=== PATIENT | male | born 1950 | race Native Hawaiian/Other Pacific Islander ===

== ENCOUNTER 2019-03-02 09:36 | Emergency (ER) | payer MEDICARE ==
[~2019-03-02] VITALS: Ht 167.6 cm; Wt 70.8 kg
--- NOTE | 2019-03-02 09:44 | NUR ---
MAURI IZAGUIRRE AT BEDSIDE FOR MSE.
[2019-03-02] MEDS ORDERED: ALBU18HF2 INH (09:58)
[2019-03-02] MEDS ORDERED: LURA40TA PO (09:58)
[2019-03-02] MEDS ORDERED: ATOR40TA PO (09:58)
[2019-03-02] MEDS ORDERED: DONE5TAB34 PO (09:58)
[2019-03-02] MEDS ORDERED: OMEP20CA11 PO (09:58)
[2019-03-02] MEDS ORDERED: MIRT7.5T10 PO (09:58)
[2019-03-02] MEDS ORDERED: OLAN15TA3 PO (09:58)
[2019-03-02] MEDS ORDERED: LIPA1CAP21 PO (09:58)
[2019-03-02] MEDS ORDERED: INSU100V28 SUBCUT ×2 (09:58)
[2019-03-02] MEDS ORDERED: DOCU-141 PO (09:58)
[2019-03-02] MEDS ORDERED: NIFE60TA69 PO (09:58)
[2019-03-02 09:59] LABS: *BILIRUBIN,URIN NEGATIVE (NEGATIVE); *BLOOD, URINE NEGATIVE (NEGATIVE); *CLARITY,URINE CLEAR (CLEAR); *COLOR,URINE YELLOW (YELLOW); *KETONES,URINE NEGATIVE (NEGATIVE); *UROBILINOGEN,URINE 0.2 E.U./dl (NORMAL); BASOPHILS # (AUTO) 0.1 K/uL (0.0-8.0); BASOPHILS % (AUTO) 0.6 % (0.0-2.0); EOSINOPHILS # (AUTO) 0.2 K/uL (0.0-0.7); EOSINOPHILS % (AUTO) 2.6 % (0.0-7.0); HEMATOCRIT 42.4 % (36.7-47.1); HEMOGLOBIN 14.2 g/dL (12.5-16.3); LEUKOCYTE ESTERASE ,URINE NEGATIVE (NEGATIVE); LYMPHOCYTES # (AUTO) 2.2 K/uL (20.0-40.0); LYMPHOCYTES % (AUTO) 25.3 % (20.5-51.5); MEAN CORPUSCULAR HGB CONC 34 g/dL (32.5-36.3); MEAN CORPUSCULAR VOLUME 83.5 fL (73.0-96.2); MONOCYTES # (AUTO) 0.5 K/uL (2.0-10.0); MONOCYTES % (AUTO) 6.2 % (0.0-11.0); NEUTROPHILS # (AUTO) 5.6 K/uL (1.8-8.9); NEUTROPHILS % (AUTO) 65.3 % (38.5-71.5); NITRITE, URINE NEGATIVE (NEGATIVE); PH,URINE 5.5 (5.0-8.0); PLATELET COUNT (AUTO) 163 K/uL (152-348); RED BLOOD CELL COUNT(AUTO) 5.08 MIL/uL (4.06-5.63); UGLUCOSE TRACE (NEGATIVE); WHITE BLOOD COUNT (AUTO) 8.6 K/uL (3.6-10.2)
[2019-03-02 10:04] LABS: CREATININE 1.7 mg/dL (0.6-1.3); POTASSIUM 4.1 mmol/L (3.5-5.1)
[2019-03-02 10:07] LABS: RBC,URINE NONE SEEN /HPF (0-3); WBC,URINE 0-3 /HPF (0-3)
[2019-03-02 10:08] LABS: BACTERIA,URINE NONE SEEN /HPF (NONE SEEN); SQUAMOUS EPITHELIAL CELL,UR FEW /HPF (NONE SEEN)
[2019-03-02 10:15] LABS: BILIRUBIN,DIRECT 0.1 mg/dL (0.0-0.2); BILIRUBIN,TOTAL 0.5 mg/dL (0.2-1.0); TOTAL PROTEIN, SERUM 7.8 g/dL (6.4-8.2)
--- NOTE | 2019-03-02 10:19 | NUR ---
SPOKE W/ RAS FROM [facility]. TRIP #[id number] ETA 1200.
--- NOTE | 2019-03-02 11:42 | NUR ---
Patient discharged to home in stable conditon. Written and verbal after care instructions given. Patient verbalizes understanding of instructions. ALL BELONGINGS W/ PT. PT WILL BE D/C UNDER CARE OF [facility] UN[facility], PRIVATE AMBULANCE.
[2019-03-02 11:44] VITALS: BP 144/77
== END 2019-03-02 11:44 | disposition home or self-care (01) ==
LOC: ER 09:36
DX: N43.3 Hydrocele, unspecified (principal); N28.9 Disorder of kidney and ureter, unspecified; R73.9 Hyperglycemia, unspecified; Z88.8 Allergy status to other drugs, medicaments and biological substances; Z79.4 Long term (current) use of insulin; Z79.899 Other long term (current) drug therapy
CPT/HCPCS: 36415; 76870; 85025; 87086; A4663

== ENCOUNTER 2019-12-19 15:00 | Inpatient (IN) | payer MEDICARE, OTHER ==
[~2019-12-19] VITALS: Ht 170.2 cm; Wt 62.6 kg
[~2019-12-19 15:00] MED LIST: ALBU18HF2 INH; ATOR40TA PO; DOCU-141 PO; DONE5TAB34 PO; INSU100V28 SUBCUT; LIPA1CAP21 PO; LURA40TA PO; MIRT7.5T10 PO; NIFE-34 PO; OLAN15TA3 PO; OMEP20CA15 PO
--- NOTE | 2019-12-19 15:06 | NUR ---
PATIENT WAS MSE BY DR SQUIRES IN ROOM 03A.
[2019-12-19] MEDS ORDERED: OMEP20TA5 PO (16:25)
[2019-12-19] MEDS ORDERED: INSU100I26 SQ (16:25)
[2019-12-19] MEDS ORDERED: INSU100V28 SQ (16:25)
[2019-12-19] MEDS ORDERED: LISI10TA5 PO (16:25)
[2019-12-19] MEDS ORDERED: NPH,100V2 SQ ×2 (16:25)
[2019-12-19 17:11] LABS: BASOPHILS % (AUTO) 0.4 % (0.0-2.0); HEMATOCRIT 44.6 % (36.7-47.1); HEMOGLOBIN 14.9 g/dL (12.5-16.3); LYMPHOCYTES # (AUTO) 1.8 K/uL (20.0-40.0); LYMPHOCYTES % (AUTO) 17.5 % (20.5-51.5); MEAN CORPUSCULAR HEMOGLOBIN 27.5 uug (23.8-33.4); MEAN CORPUSCULAR HGB CONC 33 g/dL (32.5-36.3); MEAN CORPUSCULAR VOLUME 82.4 fL (73.0-96.2); MONOCYTES # (AUTO) 0.8 K/uL (2.0-10.0); MONOCYTES % (AUTO) 7.5 % (0.0-11.0); NEUTROPHILS # (AUTO) 7.8 K/uL (1.8-8.9); NEUTROPHILS % (AUTO) 74.6 % (38.5-71.5); PLATELET COUNT (AUTO) 160 K/uL (152-348); RED BLOOD CELL COUNT(AUTO) 5.42 MIL/uL (4.06-5.63); WHITE BLOOD COUNT (AUTO) 10.4 K/uL (3.6-10.2)
[2019-12-19 17:14] LABS: *BILIRUBIN,URIN NEGATIVE (NEGATIVE); *BLOOD, URINE NEGATIVE (NEGATIVE); *CLARITY,URINE SLIGHTLY CLOUDY (CLEAR); *COLOR,URINE YELLOW (YELLOW); *KETONES,URINE NEGATIVE (NEGATIVE); *UROBILINOGEN,URINE 0.2 E.U./dl (NORMAL); LEUKOCYTE ESTERASE ,URINE NEGATIVE (NEGATIVE); NITRITE, URINE NEGATIVE (NEGATIVE); UGLUCOSE NEGATIVE (NEGATIVE)
[2019-12-19 17:20] LABS: CARBON DIOXIDE 23 mmol/L (21-32); CHLORIDE 102 mmol/L (98-107); CREATININE 2.7 mg/dL (0.6-1.3); GLUCOSE 223 mg/dL (74-106); POTASSIUM 4.6 mmol/L (3.5-5.1); UREA NITROGEN, BLOOD 68 mg/dL (7-18)
[2019-12-19 17:28] LABS: BACTERIA,URINE FEW /HPF (NONE SEEN); RBC,URINE 0-3 /HPF (0-3); SQUAMOUS EPITHELIAL CELL,UR FEW /HPF (NONE SEEN); WBC,URINE 0-3 /HPF (0-3)
[2019-12-19 17:29] LABS: COARSE GRANULAR CASTS,URINE FEW /LPF
[2019-12-19 17:32] LABS: ALANINE AMINOTRANSFERASE 52 U/L (16-63); ALKALINE PHOSPHATASE 53 U/L (50-136); ASPARTATE AMINOTRANSFERASE 77 U/L (15-37); BILIRUBIN,TOTAL 0.5 mg/dL (0.2-1.0); TOTAL PROTEIN, SERUM 8.3 g/dL (6.4-8.2)
[2019-12-19] MEDS ORDERED: CEFTRIAXONE /D5W 50ML IVPB **ER PYXIS IV ONE (17:43)
[2019-12-19] MEDS ORDERED: ACETAMINOPHEN ES 500 MG TABLET PO ONE (17:45)
[2019-12-19] MEDS ORDERED: AZITHROMYCIN IV 500 MG in IV DEXTROSE 5% 250 ML IV ONE (17:45)
[2019-12-19] MEDS ORDERED: CEFTRIAXONE 1 G in IV DEXTROSE 5% 50 ML IV ONE (17:45)
[2019-12-19] MEDS ORDERED: IV NS 1000 ML 1,000 ML IV ONE (17:45)
[2019-12-19] MEDS ORDERED: ACETAMINOPHEN ES 500 MG TABLET ONE (17:46)
--- NOTE | 2019-12-19 18:15 | NUR ---
DR RUELAS CALLED BACK SPOKE WITH DR TAVIA WILSON TO ADMIT PATIENT.
[2019-12-19] MEDS ORDERED: AZITHROMYCIN 500MG/ D5W 250ML IVPB **ER PYXIS ONLY IV ONE (18:33)
--- NOTE | 2019-12-19 20:00 | NUR ---
Pt. admitted to Tele , under care of Dr. Navarro Belongs List completed
--- NOTE | 2019-12-19 20:00 | NUR ---
Admitted 69y/o Male under the care of Dr. Navarro. Dx: PNA/r/o Covid. Patient is A&O1, noted confused. On nonrebreather mask at 15L/min saturating at 96%. Patient placed on droplet/contact isolation. On tele monitor. IV on RAC 20g intact and patent w/ IVF infusing. Admission protocol initiated. Body assessment done. Safety measures implemented. Call light in reach
[2019-12-19 20:15] VITALS: BP 101/50
[2019-12-19] MEDS ORDERED: ALBUTEROL SULFATE 8 GM HFA.AER.AD INH PRN (20:45)
[2019-12-19] MEDS ORDERED: INSULIN GLARGINE,HUM 300 UNITS/3 ML CARTRIDGE SQ SCH (21:00)
[2019-12-19] MEDS ORDERED: BLOOD SUGAR DIAGNOSTIC 1 EACH STRIP VI SCH (21:00)
[2019-12-19] MEDS ORDERED: DEXTROSE 50% 50 ML DISP.SYRIN IV PRN (21:15)
[2019-12-19] MEDS: MIRTAZAPINE 15 MG TABLET PO SCH (21:35)
[2019-12-19] MEDS: ATORVASTATIN 40 MG TABLET PO SCH (21:35)
[2019-12-19] MEDS: INSULIN REGULAR, HUMAN 300 UNITS/3 ML VIAL SQ PRN (21:55)
[2019-12-19] MEDS: INSULIN REGULAR, HUMAN 300 UNIT/3 ML VIAL SQ PRN (21:55)
[2019-12-19 22:28] VITALS: BP 101/50
[2019-12-20] VITALS: BP 122/55
[2019-12-20 04:00] VITALS: BP 130/57
[2019-12-20] MEDS: ACETAMINOPHEN 325 MG TABLET PO PRN ×2 (06:01→15:48)
[2019-12-20 06:32] LABS: BASOPHILS % (AUTO) 0.3 % (0.0-2.0); HEMOGLOBIN 13.6 g/dL (12.5-16.3); LYMPHOCYTES # (AUTO) 1.7 K/uL (20.0-40.0); LYMPHOCYTES % (AUTO) 14.9 % (20.5-51.5); MEAN CORPUSCULAR HEMOGLOBIN 27.3 uug (23.8-33.4); MEAN CORPUSCULAR HGB CONC 33 g/dL (32.5-36.3); MEAN CORPUSCULAR VOLUME 82.6 fL (73.0-96.2); MONOCYTES # (AUTO) 0.7 K/uL (2.0-10.0); MONOCYTES % (AUTO) 6.2 % (0.0-11.0); NEUTROPHILS # (AUTO) 9.1 K/uL (1.8-8.9); NEUTROPHILS % (AUTO) 78.6 % (38.5-71.5); PLATELET COUNT (AUTO) 153 K/uL (152-348); RED BLOOD CELL COUNT(AUTO) 4.97 MIL/uL (4.06-5.63); WHITE BLOOD COUNT (AUTO) 11.5 K/uL (3.6-10.2)
[2019-12-20 06:34] LABS: CARBON DIOXIDE 23 mmol/L (21-32); CHLORIDE 104 mmol/L (98-107); CREATININE 2.5 mg/dL (0.6-1.3); GLUCOSE 67 mg/dL (74-106); LACTATE DEHYDROGENASE 406 U/L (85-227); POTASSIUM 3.9 mmol/L (3.5-5.1); UREA NITROGEN, BLOOD 64 mg/dL (7-18)
[2019-12-20] MEDS: BLOOD SUGAR DIAGNOSTIC 1 EACH STRIP VI SCH ×4 (06:37→20:41)
--- NOTE | 2019-12-20 06:59 | NUR ---
Patient slept intermittently. On O2 at 8L/min via mask, saturating at 92-93%. SR on Tele monitor. BS this AM=57, patient alert, OJ and snacks given, BS rechecked went up to 99. Heplock on RAC intact and patent. All needs attended. Will endorse accordingly
[2019-12-20] MEDS ORDERED: PANTOPRAZOLE SODIUM 40 MG TABLET.DR PO SCH (07:00)
--- NOTE | 2019-12-20 07:58 | NUR ---
RECEIVED PATIENT IN BED AWAKE ALERT TO SELF NON VERBAL REMAINS ON O2 BY MASK AT 8L/M WITH NO SOB SATS ARE ADEQUATE NO S/S OF HYPOGLYCEMIC REACTIONS AT THIS TIME ALL NEEDS ANTICIPATED AND SATISFIED MADE COMFORTABLE WILL CONTINUE TO OBSERVE.
[2019-12-20 08:19] VITALS: BP 116/52
[2019-12-20] MEDS: DOCUSATE SODIUM 100 MG CAPSULE PO SCH ×2 (08:30→20:27)
[2019-12-20] MEDS: PANTOPRAZOLE SODIUM 40 MG TABLET.DR PO SCH (08:30)
[2019-12-20] MEDS: NIFEdipine XL 60 MG TABSR PO SCH (08:31)
[2019-12-20] MEDS ORDERED: LISINOPRIL 10 MG TABLET PO SCH (09:00)
[2019-12-20] MEDS ORDERED: DOCUSATE SODIUM 100 MG CAPSULE PO SCH (09:00)
[2019-12-20] MEDS ORDERED: INSULIN NPH 1,000 UNITS/10 ML VIAL SQ SCH ×2 (09:00→18:00)
--- NOTE | 2019-12-20 11:40 | NUR ---
O2 SAT IS 88 PERCENT WITH SIMPLE MASK CHANGED TO NRM AT 15 LITERS SATS STILL LOW AT [address] BELLO IS HERE AND AWARE WITH ORDERS.
[2019-12-20] MEDS: INSULIN REGULAR, HUMAN 300 UNIT/3 ML VIAL SQ PRN ×2 (12:24→16:24)
--- NOTE | 2019-12-20 12:40 | NUR ---
DR RUELAS HERE AND SEEN PATIENT INFORMED HIM THAT PATIENT IS ON LANTUS AND HAD AN EPISODE OF HYPOGLYCEMIA THIS AM AND HE STATED TO DISCONTINUE THE LANTUS FOR NOW AND JUST DO THE SLIDING SCALE AND NOTED.
--- NOTE | 2019-12-20 15:40 | NUR ---
TEMP AT THIS TIME IS 101.9 TYLENOL GIVEN ORDERED STARTED COOLING MEASURES FLUIDS ENCOURAGED PATIENT HAD BLOOD CULTURES DONE LAST EVENING HE IS IN IV ANTIBIOTICS PATIENT MADE COMFORTABLE AND WILL CONTINUE TO OBSERVE.
[2019-12-20] MEDS: DONEPEZIL 5 MG TABLET PO SCH (15:48)
[2019-12-20 15:56] VITALS: BP 132/70
--- NOTE | 2019-12-20 16:30 | NUR ---
SEEN ATTEMPTING TO GET OUT OF THE BED HAD HIS LEGS OVER THE SIDE RAILS UNABLE TO STATE WHERE HE WAS GOING ASSISTED BACK INTO THE BED MADE COMFORTABLE REMAIN ON NR MASK AT 15 L/M SEEN MANY TIMES REMOVING THE MASK REAPPLIED MADE COMFORTABLE.
[2019-12-20] MEDS: CEFTRIAXONE 1 G in IV DEXTROSE 5% 50 ML IV SCH (17:00)
[2019-12-20] MEDS: AZITHROMYCIN IV 250 MG in IV DEXTROSE 5% 250 ML IV SCH (17:52)
[2019-12-20] MEDS ORDERED: INSULIN REGULAR, HUMAN 300 UNIT/3 ML VIAL SQ SCH (18:00)
--- NOTE | 2019-12-20 18:00 | NUR ---
RESTING MORE CALMER AND QUITE AT THIS TIME AFEBRILE AT 98.6
--- NOTE | 2019-12-20 19:30 | NUR ---
RECEIVED PT AWAKE, ALERT AND ORIENTEDX2. PT IN NO ACUTE DISTRESS. IV INTACT. PT ON NONREBREATHER MASK. SAFETY AND COMFORT PROVIDED. WILL CONTINUE TO MONITOR.
[2019-12-20 20:00] VITALS: BP 142/64
[2019-12-20] MEDS: ATORVASTATIN 40 MG TABLET PO SCH (20:27)
[2019-12-20] MEDS: MIRTAZAPINE 15 MG TABLET PO SCH (20:27)
[2019-12-20] MEDS: ENOXAPARIN SODIUM 30 MG/0.3 ML DISP.SYRIN SUBCUT SCH (20:37)
[2019-12-20] MEDS: INSULIN REGULAR, HUMAN 300 UNITS/3 ML VIAL SQ PRN (20:43)
[2019-12-20] MEDS ORDERED: BLOOD SUGAR DIAGNOSTIC 1 EACH STRIP VI SCH (21:00)
[2019-12-21] VITALS: BP 136/63
[2019-12-21] MEDS: ACETAMINOPHEN 325 MG TABLET PO PRN (01:30)
[2019-12-21 04:00] VITALS: BP 139/66
--- NOTE | 2019-12-21 04:12 | NUR ---
PT OBSERVED MOANING AND RESTLESS. GIVEN 013OH TYLENOL. PT CALM AND SLEPT AGAIN AFTER AN HOUR. SAFETY AND COMFORT PROVIDED. WILL CONTINUE TO MONITOR.
[2019-12-21 06:17] LABS: BASOPHILS % (AUTO) 0.2 % (0.0-2.0); HEMATOCRIT 41.7 % (36.7-47.1); HEMOGLOBIN 14.1 g/dL (12.5-16.3); LYMPHOCYTES # (AUTO) 1.3 K/uL (20.0-40.0); LYMPHOCYTES % (AUTO) 9.9 % (20.5-51.5); MEAN CORPUSCULAR HEMOGLOBIN 27.9 uug (23.8-33.4); MEAN CORPUSCULAR HGB CONC 34 g/dL (32.5-36.3); MEAN CORPUSCULAR VOLUME 82.6 fL (73.0-96.2); MONOCYTES # (AUTO) 0.8 K/uL (2.0-10.0); MONOCYTES % (AUTO) 5.9 % (0.0-11.0); NEUTROPHILS # (AUTO) 10.9 K/uL (1.8-8.9); PLATELET COUNT (AUTO) 199 K/uL (152-348); RED BLOOD CELL COUNT(AUTO) 5.05 MIL/uL (4.06-5.63)
[2019-12-21] MEDS: BLOOD SUGAR DIAGNOSTIC 1 EACH STRIP VI SCH ×4 (06:41→21:23)
--- NOTE | 2019-12-21 06:56 | NUR ---
PT SLEPT INTERMITTENTLY. PT IN NO ACUTE DISTRESS. PT AFEBRILE. HAD EPISODES OF COUGH.PRESCRIBED MEDICATION GIVEN AND PT TOLERATED IT WELL. SAFETY AND COMFORT PROVIDED.PT TURNED AND REPOSITIONED. PT WILL SOMETIMES TAKES OFF HER OXYGEN. ALL NEEDS ARE MET.PRESCRIBEDMEDICATION GIVEN AND PT TOLERATED IT WELL. WILL ENDORSE TO INCOMING NURSE FOR CONTINUITY OF CARE.
[2019-12-21 07:05] LABS: CARBON DIOXIDE 20 mmol/L (21-32); CHLORIDE 104 mmol/L (98-107); CREATININE 2.6 mg/dL (0.6-1.3); FERRITIN 2622 ng/mL (26-388); GLUCOSE 147 mg/dL (74-106); LACTATE DEHYDROGENASE 608 U/L (85-227); MAGNESIUM 2.6 mg/dL (1.8-2.4); PHOSPHOROUS 4.3 mg/dL (2.5-4.9); POTASSIUM 3.7 mmol/L (3.5-5.1); UREA NITROGEN, BLOOD 69 mg/dL (7-18)
[2019-12-21 08:47] LABS: ABG BASE EXCESS -5.1 mmol/L; ABG HCO3 18.5 mmol/L; ABG PCO2 31.2 mmHg (35.0-45.0); ABG PH 7.392 (7.350-7.450); ABG PO2 48.1 mmHg (75.0-100.0); ABG SITE RIGHT RADIAL; ABG TOTAL HEMOGLOBIN 14.9 G/dL (13.5-18.0); COHb 1.1 % (0.5-1.5); MetHb 0.3 % (0.0-1.5); O2Hb 80.7 % (94.0-97.0)
[2019-12-21] MEDS: DONEPEZIL 5 MG TABLET PO SCH (09:24)
[2019-12-21] MEDS: PANTOPRAZOLE SODIUM 40 MG TABLET.DR PO SCH (09:25)
[2019-12-21] MEDS: NIFEdipine XL 60 MG TABSR PO SCH (09:25)
[2019-12-21] MEDS: DOCUSATE SODIUM 100 MG CAPSULE PO SCH ×2 (09:25→21:24)
[2019-12-21 10:41] VITALS: BP 139/66
[2019-12-21 13:00] VITALS: BP 124/62
[2019-12-21] MEDS ORDERED: ACETAMINOPHEN 325 MG TABLET PO ONE (14:30)
[2019-12-21] MEDS ORDERED: methylPREDNISolone SOD SUCC 40 MG/ML VIAL IV ONE (14:30)
[2019-12-21] MEDS ORDERED: diphenhydrAMINE 50 MG/1 ML VIAL IV ONE (14:30)
[2019-12-21] MEDS ORDERED: TOCILIZUMAB 400 MG in IV NORMAL SALINE 80 ML IV ONE (15:00)
--- NOTE | 2019-12-21 15:01 | NUR ---
BRYANNA UP DOSE OF BENADRYL FOR ADMINISTRATION. THREW IT IN SHARPS CONTAINER BY ACCIDENT NEW VIAL BROUGHT BY PHARMACY
[2019-12-21 16:00] VITALS: BP 111/56
[2019-12-21] MEDS: CEFTRIAXONE 1 G in IV DEXTROSE 5% 50 ML IV SCH (17:36)
[2019-12-21] MEDS: AZITHROMYCIN IV 250 MG in IV DEXTROSE 5% 250 ML IV SCH ×2 (17:36→18:00)
[2019-12-21] MEDS: MIRTAZAPINE 15 MG TABLET PO SCH (21:23)
[2019-12-21] MEDS: ATORVASTATIN 40 MG TABLET PO SCH (21:24)
[2019-12-21] MEDS: ENOXAPARIN SODIUM 30 MG/0.3 ML DISP.SYRIN SUBCUT SCH (21:25)
[2019-12-21] MEDS: INSULIN REGULAR, HUMAN 300 UNITS/3 ML VIAL SQ PRN (21:27)
[2019-12-21] MEDS: methylPREDNISolone SOD SUCC 125 MG/2 ML VIAL IV SCH (22:31)
[2019-12-21 23:45] VITALS: BP 129/71
--- NOTE | 2019-12-21 23:45 | NUR ---
Called Rapid Response team d/t patient's persistent tachycardia and low oxygen saturation. Patient is transferred to CCU.
--- NOTE | 2019-12-21 23:45 | NUR ---
Patient transferred to ICU / poor SaO2 70's.
--- NOTE | 2019-12-21 23:57 | NUR ---
gave the report to FELIX Moctezuma.
[2019-12-22] VITALS (24 sets, daily range): BP systolic 86–139; BP diastolic 44–73
[2019-12-22 00:11] LABS: ABG BASE EXCESS -6.6 mmol/L; ABG HCO3 16.7 mmol/L; ABG PCO2 28.3 mmHg (35.0-45.0); ABG PH 7.389 (7.350-7.450); ABG PO2 35.5 mmHg (75.0-100.0); ABG SITE RIGHT RADIAL; ABG TOTAL HEMOGLOBIN 15.9 G/dL (13.5-18.0); COHb 1.1 % (0.5-1.5); MetHb 0.3 % (0.0-1.5); O2Hb 66.8 % (94.0-97.0)
--- NOTE | 2019-12-22 01:04 | NUR ---
Per MD orders pt placed on BIPAP at this time. Settings are IPAP 15, EPAP 5, set resp. rate 12 and FIO2-100%. No resp. distress noted. Pt to be monitored throughout the duration of the shift. V60 alarm parameters have been checked and remain audible.
--- NOTE | 2019-12-22 01:45 | NUR ---
18 ga right upper arm midline IV access placed by EVELYN Hurd.
[2019-12-22 05:01] LABS: BASOPHILS # (AUTO) 0.1 K/uL (0.0-8.0); BASOPHILS % (AUTO) 0.8 % (0.0-2.0); HEMATOCRIT 41.7 % (36.7-47.1); HEMOGLOBIN 13.8 g/dL (12.5-16.3); LYMPHOCYTES # (AUTO) 0.8 K/uL (20.0-40.0); LYMPHOCYTES % (AUTO) 4.1 % (20.5-51.5); MEAN CORPUSCULAR HEMOGLOBIN 27.3 uug (23.8-33.4); MEAN CORPUSCULAR HGB CONC 33 g/dL (32.5-36.3); MEAN CORPUSCULAR VOLUME 82.4 fL (73.0-96.2); MONOCYTES # (AUTO) 0.9 K/uL (2.0-10.0); MONOCYTES % (AUTO) 4.8 % (0.0-11.0); NEUTROPHILS # (AUTO) 17.4 K/uL (1.8-8.9); NEUTROPHILS % (AUTO) 90.3 % (38.5-71.5); PLATELET COUNT (AUTO) 282 K/uL (152-348); RED BLOOD CELL COUNT(AUTO) 5.06 MIL/uL (4.06-5.63); WHITE BLOOD COUNT (AUTO) 19.2 K/uL (3.6-10.2)
[2019-12-22 05:17] LABS: ALANINE AMINOTRANSFERASE 159 U/L (16-63); ALKALINE PHOSPHATASE 81 U/L (50-136); ASPARTATE AMINOTRANSFERASE 172 U/L (15-37); BILIRUBIN,DIRECT 0.1 mg/dL (0.0-0.2); BILIRUBIN,TOTAL 0.5 mg/dL (0.2-1.0); CARBON DIOXIDE 21 mmol/L (21-32); CHLORIDE 106 mmol/L (98-107); CREATININE 2.8 mg/dL (0.6-1.3); LACTATE DEHYDROGENASE 633 U/L (85-227); MAGNESIUM 2.9 mg/dL (1.8-2.4); PHOSPHOROUS 3.9 mg/dL (2.5-4.9); POTASSIUM 4.4 mmol/L (3.5-5.1); TOTAL PROTEIN, SERUM 7.9 g/dL (6.4-8.2); UREA NITROGEN, BLOOD 77 mg/dL (7-18)
[2019-12-22] MEDS: methylPREDNISolone SOD SUCC 125 MG/2 ML VIAL IV SCH ×2 (05:21→20:53)
[2019-12-22 05:25] LABS: GLUCOSE 312 mg/dL (74-106)
[2019-12-22] MEDS: BLOOD SUGAR DIAGNOSTIC 1 EACH STRIP VI SCH ×4 (07:30→21:27)
[2019-12-22 08:23] LABS: ABG BASE EXCESS -5.7 mmol/L; ABG HCO3 18.6 mmol/L; ABG PCO2 33.3 mmHg (35.0-45.0); ABG PH 7.366 (7.350-7.450); ABG PO2 73.4 mmHg (75.0-100.0); ABG SITE LEFT RADIAL; ABG TOTAL HEMOGLOBIN 14.9 G/dL (13.5-18.0); MetHb 0.3 % (0.0-1.5); VENT MODE BIPAP
--- NOTE | 2019-12-22 08:40 | NUR ---
PAGED DR BELLO IN REGARDING ABG RESULTS. NEW TRANSFER OF PATIENT AND PATIENT ON BIPAP.
[2019-12-22] MEDS: NIFEdipine XL 60 MG TABSR PO SCH (09:00)
[2019-12-22] MEDS: DONEPEZIL 5 MG TABLET PO SCH (09:12)
[2019-12-22] MEDS: DOCUSATE SODIUM 100 MG CAPSULE PO SCH (09:12)
[2019-12-22] MEDS: PANTOPRAZOLE SODIUM 40 MG TABLET.DR PO SCH (09:12)
[2019-12-22] MEDS: INSULIN REGULAR, HUMAN 300 UNIT/3 ML VIAL SQ PRN ×4 (09:16→21:35)
--- NOTE | 2019-12-22 09:30 | NUR ---
DOCTOR BELLO IN THE UNIT TO SEE PATIENT WILL PLAN TO INTUBATE PATIENT TODAY BY ANESTHESIOLOGIST THAT IS PSYCHIATRIC TECH OR ER DOCTOR.
--- NOTE | 2019-12-22 09:45 | NUR ---
DOCTOR EMERITA IN THE UNIT TO SEE PATIENT. INFORMED BLOOD PRESSURE MEDICATION PROCARDIA HELD THIS AM FOR POSSIBLE INTUBATION TODAY. WILL DISCONTINUE FOR NOW.
[2019-12-22] MEDS ORDERED: KETAMINE HCL 500 MG/10 ML INJ IV ONE (13:00)
--- NOTE | 2019-12-22 13:07 | NUR ---
ANESTHESIOLOGIST IN THE UNIT TO INTUBATE PATIENT. PATIENT INTUBATED WITH 7.5 AND 25CM AT THE LIP. PATIENT WAS ALSO GIVEN SUCCINYLCHOLINE AND KETAMINE FOR INTUBATION PER ANESTHESIOLOGIST.
[2019-12-22] MEDS: PROPOFOL 100 ML IV PRN ×3 (13:32→20:11)
[2019-12-22 14:45] LABS: ABG BASE EXCESS -6.8 mmol/L; ABG HCO3 20.8 mmol/L; ABG PCO2 49.4 mmHg (35.0-45.0); ABG PH 7.242 (7.350-7.450); ABG PO2 175.1 mmHg (75.0-100.0); ABG SITE LEFT RADIAL; ABG TOTAL HEMOGLOBIN 14.7 G/dL (13.5-18.0); COHb 0.7 % (0.5-1.5); MetHb 0.3 % (0.0-1.5); O2Hb 98.2 % (94.0-97.0); VENT MODE VENT - A/C; VT, ABG 450 mL
--- NOTE | 2019-12-22 15:00 | NUR ---
REPORTED ABG TO ELIZABET BELLO 1 HOUR POST INTUBATION.
[2019-12-22] MEDS: CEFTRIAXONE 1 G in IV DEXTROSE 5% 50 ML IV SCH (17:51)
[2019-12-22 17:58] LABS: ABG BASE EXCESS -6.4 mmol/L; ABG HCO3 20.1 mmol/L; ABG PCO2 43.6 mmHg (35.0-45.0); ABG PH 7.282 (7.350-7.450); ABG PO2 72.5 mmHg (75.0-100.0); ABG SITE RIGHT RADIAL; ABG TOTAL HEMOGLOBIN 14.1 G/dL (13.5-18.0); MetHb 0.3 % (0.0-1.5); O2Hb 91.2 % (94.0-97.0); VENT MODE VENT - A/C; VT, ABG 450 mL
[2019-12-22] MEDS: AZITHROMYCIN IV 250 MG in IV DEXTROSE 5% 250 ML IV SCH (18:35)
[2019-12-22] MEDS: IV NORMAL SALINE 250 ML IV PRN (19:00)
[2019-12-22] MEDS ORDERED: CEFEPIME HCL 1 G in IV DEXTROSE 5% 50 ML IV SCH (20:30)
[2019-12-22] MEDS: ENOXAPARIN SODIUM 30 MG/0.3 ML DISP.SYRIN SUBCUT SCH (20:54)
[2019-12-22] MEDS: MIRTAZAPINE 15 MG TABLET NG SCH (20:54)
[2019-12-22] MEDS: DOCUSATE SODIUM 100 MG/10 ML LIQUID UDC NG SCH (20:55)
[2019-12-22] MEDS: CEFEPIME HCL 1 G in IV DEXTROSE 5% 50 ML IV SCH (21:27)
[2019-12-23] VITALS (28 sets, daily range): BP systolic 83–138; BP diastolic 37–80
[2019-12-23] MEDS ORDERED: IV NORMAL SALINE 250 ML IV PRN (00:01)
[2019-12-23] MEDS: PROPOFOL 100 ML IV PRN ×4 (02:10→21:18)
[2019-12-23] MEDS: IV NORMAL SALINE 250 ML IV PRN ×2 (04:18→04:38)
--- NOTE | 2019-12-23 04:30 | NUR ---
Sx ETT & sent to lab: respiratory pathogen profile - originally ordered by Dr Carter in ER.
[2019-12-23 04:52] LABS: BASOPHILS % (AUTO) 0.2 % (0.0-2.0); HEMATOCRIT 40.5 % (36.7-47.1); HEMOGLOBIN 13.3 g/dL (12.5-16.3); LYMPHOCYTES % (AUTO) 4.9 % (20.5-51.5); MEAN CORPUSCULAR HEMOGLOBIN 27.3 uug (23.8-33.4); MEAN CORPUSCULAR HGB CONC 33 g/dL (32.5-36.3); MEAN CORPUSCULAR VOLUME 83.2 fL (73.0-96.2); MONOCYTES # (AUTO) 0.8 K/uL (2.0-10.0); MONOCYTES % (AUTO) 4.2 % (0.0-11.0); NEUTROPHILS # (AUTO) 17.6 K/uL (1.8-8.9); NEUTROPHILS % (AUTO) 90.7 % (38.5-71.5); PLATELET COUNT (AUTO) 319 K/uL (152-348); RED BLOOD CELL COUNT(AUTO) 4.87 MIL/uL (4.06-5.63); WHITE BLOOD COUNT (AUTO) 19.4 K/uL (3.6-10.2)
[2019-12-23 05:02] LABS: CARBON DIOXIDE 23 mmol/L (21-32); CHLORIDE 109 mmol/L (98-107); CREATININE 3.6 mg/dL (0.6-1.3); MAGNESIUM 3.6 mg/dL (1.8-2.4); PHOSPHOROUS 5.9 mg/dL (2.5-4.9); POTASSIUM 4.6 mmol/L (3.5-5.1)
[2019-12-23 05:20] LABS: GLUCOSE 341 mg/dL (74-106); UREA NITROGEN, BLOOD 103 mg/dL (7-18)
[2019-12-23] MEDS: BLOOD SUGAR DIAGNOSTIC 1 EACH STRIP VI SCH ×4 (07:15→21:44)
[2019-12-23] MEDS: INSULIN REGULAR, HUMAN 300 UNIT/3 ML VIAL SQ PRN ×4 (07:19→21:47)
[2019-12-23 07:30] LABS: ABG BASE EXCESS -11.6 mmol/L; ABG HCO3 13.9 mmol/L; ABG PCO2 30.5 mmHg (35.0-45.0); ABG PH 7.278 (7.350-7.450); ABG PO2 137.8 mmHg (75.0-100.0); ABG SITE RIGHT RADIAL; ABG TOTAL HEMOGLOBIN 11.6 G/dL (13.5-18.0); COHb 0.4 % (0.5-1.5); MetHb 0.4 % (0.0-1.5); O2Hb 98.1 % (94.0-97.0); VENT MODE VENT - A/C; VT, ABG 450 mL
[2019-12-23] MEDS: PANTOPRAZOLE ORAL SUSPENSION 40 MG SUSPDR.PKT NG SCH (07:45)
[2019-12-23] MEDS: DOCUSATE SODIUM 100 MG/10 ML LIQUID UDC NG SCH ×2 (07:46→21:00)
[2019-12-23] MEDS: methylPREDNISolone SOD SUCC 125 MG/2 ML VIAL IV SCH ×2 (07:46→21:19)
[2019-12-23] MEDS: DONEPEZIL 5 MG TABLET PO SCH (07:46)
--- NOTE | 2019-12-23 11:25 | NUR ---
DOCTOR TORREZ IN THE UNIT TO SEE PATIENT. REVIEWED ABG AND UPDATED OF RECENT INTUBATION DONE YESTERDAY.
--- NOTE | 2019-12-23 12:00 | NUR ---
DOCTOR JESSENIA CALLED. UPDATED REGARDING PATIENT WITH NGT CLAMPED NPO AT THIS POINT WILL BE STARTED ON IVF FOR NOW AND POSSIBLE START FEEDING TOMORROW. INFORMED BLOOD SUGARS MAINTAINING OVER 300 WITH BLOOD SUGAR CHECKS. WILL REVISE INSULIN ORDERS. INFORMED OF ABG RESULTS PH 7.28 AND A BICARB OF 13.9 PATIENT RENAL NUMBERS WORSENING. WILL ORDER FOR LACTIC ACID.
[2019-12-23] MEDS: INSULIN GLARGINE,HUM 300 UNITS/3 ML CARTRIDGE SQ SCH ×2 (14:48→21:43)
[2019-12-23] MEDS: IV NS 1000 ML 1,000 ML IV PRN ×2 (14:50→23:55)
[2019-12-23] MEDS: AZITHROMYCIN IV 250 MG in IV DEXTROSE 5% 250 ML IV SCH (16:59)
--- NOTE | 2019-12-23 20:00 | NUR ---
ROUNDS MADE PATIENT ORALLY INTUBATED ON VENT ,AC 24/450/60/10 ,SUCTION VIA ETT AND VIA MOUTH . HOB UP . SEDATED ON PROPOFOL. NPO RIGHT NARES NGT CLAMP . F.C TO BSD .
[2019-12-23] MEDS: MIRTAZAPINE 15 MG TABLET NG SCH (21:00)
--- NOTE | 2019-12-23 21:00 | NUR ---
DUE MEDICATION GIVEN AND SCAN MEDS . FINGERSTICKS DONE AND FOLLOW ISS .
[2019-12-23] MEDS: ENOXAPARIN SODIUM 30 MG/0.3 ML DISP.SYRIN SUBCUT SCH (21:20)
[2019-12-23] MEDS: CEFEPIME HCL 1 G in IV DEXTROSE 5% 50 ML IV SCH (21:23)
[2019-12-23] MEDS: Z GUARD REMEDY PASTE 57 GM TUBE TOP PRN (21:35)
--- NOTE | 2019-12-23 22:30 | NUR ---
TURNED AND REPOSITION PATIENT ,OFFLAODED BACK WITH PILLOW AND HEELS OFF BED .
[2019-12-24] VITALS (24 sets, daily range): BP systolic 118–151; BP diastolic 56–93
--- NOTE | 2019-12-24 01:00 | NUR ---
SCDS TO BLE EXTREMITIES PLACED .
[2019-12-24] MEDS: PROPOFOL 100 ML IV PRN ×7 (01:59→23:14)
--- NOTE | 2019-12-24 04:57 | NUR ---
am care done ,bath patient ,changed soiled linens and gown .f/c done and oral care done .
[2019-12-24 05:29] LABS: BASOPHILS # (AUTO) 0.1 K/uL (0.0-8.0); BASOPHILS % (AUTO) 0.3 % (0.0-2.0); HEMATOCRIT 40.9 % (36.7-47.1); LYMPHOCYTES # (AUTO) 0.8 K/uL (20.0-40.0); LYMPHOCYTES % (AUTO) 3.9 % (20.5-51.5); MEAN CORPUSCULAR HEMOGLOBIN 28.2 uug (23.8-33.4); MEAN CORPUSCULAR HGB CONC 34 g/dL (32.5-36.3); MEAN CORPUSCULAR VOLUME 82.6 fL (73.0-96.2); MONOCYTES # (AUTO) 0.9 K/uL (2.0-10.0); MONOCYTES % (AUTO) 4.6 % (0.0-11.0); NEUTROPHILS # (AUTO) 17.5 K/uL (1.8-8.9); NEUTROPHILS % (AUTO) 91.2 % (38.5-71.5); PLATELET COUNT (AUTO) 359 K/uL (152-348); RED BLOOD CELL COUNT(AUTO) 4.95 MIL/uL (4.06-5.63); WHITE BLOOD COUNT (AUTO) 19.2 K/uL (3.6-10.2)
--- NOTE | 2019-12-24 05:30 | NUR ---
RESPIRATORY THERAPIST AT B/S AND DID ABG .
[2019-12-24 05:38] LABS: CARBON DIOXIDE 24 mmol/L (21-32); CHLORIDE 114 mmol/L (98-107); CREATININE 2.2 mg/dL (0.6-1.3); GLUCOSE 206 mg/dL (74-106); MAGNESIUM 2.9 mg/dL (1.8-2.4); PHOSPHOROUS 4.4 mg/dL (2.5-4.9); POTASSIUM 6.1 mmol/L (3.5-5.1)
[2019-12-24 05:40] LABS: UREA NITROGEN, BLOOD 87 mg/dL (7-18)
--- NOTE | 2019-12-24 06:12 | NUR ---
XRAY CATEGORY DIRECTOR AT B/S DID PORTABLE CHEST XRAY .
[2019-12-24 07:41] LABS: ABG BASE EXCESS -4.2 mmol/L; ABG PCO2 44.1 mmHg (35.0-45.0); ABG PH 7.315 (7.350-7.450); ABG PO2 143.1 mmHg (75.0-100.0); ABG SITE LEFT RADIAL; ABG TOTAL HEMOGLOBIN 13.3 G/dL (13.5-18.0); COHb 1.3 % (0.5-1.5); MetHb 0.2 % (0.0-1.5); O2Hb 97.9 % (94.0-97.0); VENT MODE VENT - A/C; VT, ABG 450 mL
[2019-12-24] MEDS: DONEPEZIL 5 MG TABLET PO SCH (08:08)
[2019-12-24] MEDS: methylPREDNISolone SOD SUCC 125 MG/2 ML VIAL IV SCH ×2 (08:08→20:57)
[2019-12-24] MEDS: PANTOPRAZOLE ORAL SUSPENSION 40 MG SUSPDR.PKT NG SCH (08:08)
[2019-12-24] MEDS: DOCUSATE SODIUM 100 MG/10 ML LIQUID UDC NG SCH ×2 (08:09→19:37)
[2019-12-24] MEDS: BLOOD SUGAR DIAGNOSTIC 1 EACH STRIP VI SCH ×4 (08:53→21:53)
[2019-12-24] MEDS: INSULIN REGULAR, HUMAN 300 UNIT/3 ML VIAL SQ PRN ×2 (08:54→12:25)
[2019-12-24] MEDS: IV NS 1000 ML 1,000 ML IV PRN ×2 (10:06→20:16)
--- NOTE | 2019-12-24 11:02 | NUR ---
Pulmonary services Dr. Zamudio in the unit, full report given to Dr. Zamudio. See order history for new orders.
[2019-12-24] MEDS ORDERED: SODIUM POLYSTYRENE SULFONATE 15 G/60 ML LIQUID UDC NG ONE (11:45)
[2019-12-24] MEDS: NEPRO 1000 ML NG PRN (12:44)
[2019-12-24 15:04] LABS: CARBON DIOXIDE 23 mmol/L (21-32); CHLORIDE 117 mmol/L (98-107); CREATININE 1.9 mg/dL (0.6-1.3); GLUCOSE 277 mg/dL (74-106); POTASSIUM 4.8 mmol/L (3.5-5.1); UREA NITROGEN, BLOOD 79 mg/dL (7-18)
--- NOTE | 2019-12-24 17:30 | NUR ---
pt remains orally intubated, no vent modality changes made during shift, FiO2 tit to 50%. pt edwin current vent settings well, no sob/distress noted during shift. pt sxn'd Q2, oral care provided X 2. vent alarms audible, checked and reset, bvm at bedside.
--- NOTE | 2019-12-24 19:55 | NUR ---
Pt received on Crowley settings AC 24, VT 450, PEEP+10 and FIO2-50%. 7.5 ETT is patent and secure at approx. 25cm at the lip. Pt to be monitored throughout the shift and PRN SX. Pt is in no resp. distress and appears to be tolerating ventilator settings well. Crowley alarms have been checked and remain audible.
[2019-12-24] MEDS: CEFEPIME HCL 1 G in IV DEXTROSE 5% 50 ML IV SCH (20:53)
[2019-12-24] MEDS: MIRTAZAPINE 15 MG TABLET NG SCH (20:57)
[2019-12-24] MEDS: ENOXAPARIN SODIUM 30 MG/0.3 ML DISP.SYRIN SUBCUT SCH (20:58)
[2019-12-24] MEDS: INSULIN GLARGINE,HUM 300 UNITS/3 ML CARTRIDGE SQ SCH (21:54)
[2019-12-24] MEDS: INSULIN REGULAR, HUMAN 300 UNITS/3 ML VIAL SQ PRN (21:55)
[2019-12-25] VITALS (28 sets, daily range): BP systolic 109–175; BP diastolic 53–83
[2019-12-25] MEDS: PROPOFOL 100 ML IV PRN ×7 (04:17→21:09)
[2019-12-25] MEDS: LORAZEPAM 2 MG/1 ML VIAL IV PRN (05:37)
[2019-12-25] MEDS: IV NS 1000 ML 1,000 ML IV PRN (06:25)
[2019-12-25 06:33] LABS: CARBON DIOXIDE 23 mmol/L (21-32); CHLORIDE 119 mmol/L (98-107); CREATININE 1.8 mg/dL (0.6-1.3); GLUCOSE 197 mg/dL (74-106); LACTATE DEHYDROGENASE 619 U/L (85-227); MAGNESIUM 2.7 mg/dL (1.8-2.4); PHOSPHOROUS 3.6 mg/dL (2.5-4.9); POTASSIUM 4.1 mmol/L (3.5-5.1); UREA NITROGEN, BLOOD 65 mg/dL (7-18)
[2019-12-25 07:15] LABS: BASOPHILS # (AUTO) 0.2 K/uL (0.0-8.0); BASOPHILS % (AUTO) 1.3 % (0.0-2.0); EOSINOPHILS % (AUTO) 0.2 % (0.0-7.0); HEMOGLOBIN 13.7 g/dL (12.5-16.3); LYMPHOCYTES # (AUTO) 1.2 K/uL (20.0-40.0); LYMPHOCYTES % (AUTO) 6.8 % (20.5-51.5); MEAN CORPUSCULAR HEMOGLOBIN 27.6 uug (23.8-33.4); MEAN CORPUSCULAR HGB CONC 33 g/dL (32.5-36.3); MEAN CORPUSCULAR VOLUME 84.4 fL (73.0-96.2); MONOCYTES # (AUTO) 0.6 K/uL (2.0-10.0); MONOCYTES % (AUTO) 3.3 % (0.0-11.0); NEUTROPHILS # (AUTO) 15.2 K/uL (1.8-8.9); NEUTROPHILS % (AUTO) 88.4 % (38.5-71.5); PLATELET COUNT (AUTO) 288 K/uL (152-348); RED BLOOD CELL COUNT(AUTO) 4.97 MIL/uL (4.06-5.63); WHITE BLOOD COUNT (AUTO) 17.2 K/uL (3.6-10.2)
[2019-12-25] MEDS: BLOOD SUGAR DIAGNOSTIC 1 EACH STRIP VI SCH ×4 (07:22→21:00)
[2019-12-25 07:25] LABS: ABG BASE EXCESS -7.2 mmol/L; ABG HCO3 19.4 mmol/L; ABG PCO2 43.1 mmHg (35.0-45.0); ABG PH 7.271 (7.350-7.450); ABG PO2 56.7 mmHg (75.0-100.0); ABG SITE LEFT RADIAL; ABG TOTAL HEMOGLOBIN 14.3 G/dL (13.5-18.0); MetHb 0.5 % (0.0-1.5); O2Hb 85.5 % (94.0-97.0); VENT MODE VENT - A/C 24; VT, ABG 450 mL
[2019-12-25] MEDS: INSULIN REGULAR, HUMAN 300 UNIT/3 ML VIAL SQ PRN ×3 (07:26→17:53)
[2019-12-25] MEDS: methylPREDNISolone SOD SUCC 125 MG/2 ML VIAL IV SCH ×2 (08:07→20:46)
[2019-12-25] MEDS: DONEPEZIL 5 MG TABLET PO SCH (08:07)
[2019-12-25] MEDS: PANTOPRAZOLE ORAL SUSPENSION 40 MG SUSPDR.PKT NG SCH (08:08)
[2019-12-25] MEDS: DOCUSATE SODIUM 100 MG/10 ML LIQUID UDC NG SCH ×2 (08:08→20:46)
--- NOTE | 2019-12-25 09:10 | NUR ---
Nephrology services Dr. Navarro in the unit, full report given. See order history for new orders.
[2019-12-25] MEDS: IV 1/2NS 1000 ML 1,000 ML IV PRN ×2 (09:11→21:47)
--- NOTE | 2019-12-25 09:29 | NUR ---
Pulmonary services Dr. Hope in the unit, full report given to Dr. Hope. See order history for new orders. Dr. Hope at the bedside assessing patient.
[2019-12-25 09:35] LABS: BAND % (MANUAL) 2 % (0-10); LYMPHOCYTES % (MANUAL) 3 % (20-40); MONOCYTES % (MANUAL) 2 % (2-10); NEUTROPHILS % (MANUAL) 93 % (42-75)
[2019-12-25] MEDS: NEPRO 1000 ML NG PRN (10:00)
--- NOTE | 2019-12-25 11:30 | NUR ---
Cardiology services Dr. Calles in the unit, full report given to Dr. Calles. See order history for new orders.
--- NOTE | 2019-12-25 17:15 | NUR ---
pt remains orally intubated, no venT changes made during shift. pt tolerating current vent settings well, no sob/distress noted during shift. pt sxn'd Q2, oral care provided X 2. vent alarms audible, checked and reset, bvm at bedside.
--- NOTE | 2019-12-25 19:30 | NUR ---
Report received. Patient orally intubated and to mechanical ventilator with settings as follows: AC=24, FIO2=50%, PEEP=10 and RJ=043yd. Sedated; on continuous Diprivan drip at 70 mcg/kg/min. Saturations above 94%. On COVID-19 isolation. Addendum: 12/25/19 at 2312 by EMILY SCHNEIDER RN Amended: Links added. Addendum: 12/25/19 at 2312 by EMILY SCHNEIDER RN Amended: Links added. Addendum: 12/25/19 at 2312 by EMILY SCHNEIDER RN Amended: Links added. Addendum: 12/25/19 at 2313 by EMILY SCHNEIDER RN Amended: Links added. Addendum: 12/25/19 at 2314 by EMILY SCHNEIDER RN Amended: Links added. Addendum: 12/25/19 at 2314 by EMILY SCHNEIDER RN Amended: Links added. Addendum: 12/25/19 at 2314 by EMILY SCHNEIDER RN Amended: Links added. Addendum: 12/25/19 at 2315 by EMILY SCHNEIDER RN Amended: Links added.
[2019-12-25] MEDS: MIRTAZAPINE 15 MG TABLET NG SCH (20:46)
[2019-12-25] MEDS: CEFEPIME HCL 1 G in IV DEXTROSE 5% 50 ML IV SCH (20:46)
[2019-12-25] MEDS: INSULIN GLARGINE,HUM 300 UNITS/3 ML CARTRIDGE SQ SCH (21:13)
[2019-12-25] MEDS: ENOXAPARIN SODIUM 40 MG/0.4 ML DISP.SYRIN SQ SCH (21:14)
[2019-12-25] MEDS: INSULIN REGULAR, HUMAN 300 UNITS/3 ML VIAL SQ PRN (21:15)
[2019-12-25] MEDS: ACETAMINOPHEN 650 MG/20.3 ML LIQUID UDC NG PRN (22:11)
[2019-12-25] MEDS: NITROGLYCERIN OINT 1 GM PACKET TP PRN (22:35)
--- NOTE | 2019-12-25 22:35 | NUR ---
Nitropaste 1 inch applied to chest; MP=[id number].
--- NOTE | 2019-12-25 23:40 | NUR ---
PT RECEIVED ORALLY INTUBATED ON A SÁNCHEZ VENTILATOR WITH THE FOLLOWING SETTINGS THAT ARE CHARTED ON THE MECHANICAL VENTILATOR NOTES. PT IS TOLERATING CURRENT VENTILATOR SETTINGS WELL WITH NO SOB NOTED. NO VENT CHANGES MADE. VENTILATOR IS PLUGGED IN THE RED EMERGENCY OUTLET. VENTILATOR ALARMS CHECKED AND THEY ARE AUDIBLE. ORAL CARE DONE. SUCTIONED SMALL THICK SECRETIONS. AMBU BAG IS BY BEDSIDE. WILL CONTINUE TO MONITOR PATIENT.
[2019-12-26] VITALS (36 sets, daily range): BP systolic 98–165; BP diastolic 53–96
[2019-12-26] MEDS: PROPOFOL 100 ML IV PRN ×5 (01:01→13:44)
--- NOTE | 2019-12-26 05:00 | NUR ---
RR 31-32/min. Ativan IV given. Diprivan drip remains at 70 mcg/kg/min. Addendum: 12/26/19 at 0509 by EMILY SCHNEIDER RN Amended: Links added.
[2019-12-26] MEDS: LORAZEPAM 2 MG/1 ML VIAL IV PRN ×3 (05:04→21:23)
[2019-12-26 05:23] LABS: BASOPHILS % (AUTO) 0.1 % (0.0-2.0); HEMATOCRIT 40.5 % (36.7-47.1); HEMOGLOBIN 13.8 g/dL (12.5-16.3); LYMPHOCYTES # (AUTO) 0.7 K/uL (20.0-40.0); LYMPHOCYTES % (AUTO) 4.4 % (20.5-51.5); MEAN CORPUSCULAR HEMOGLOBIN 28.8 uug (23.8-33.4); MEAN CORPUSCULAR HGB CONC 34 g/dL (32.5-36.3); MEAN CORPUSCULAR VOLUME 84.1 fL (73.0-96.2); MONOCYTES # (AUTO) 0.4 K/uL (2.0-10.0); MONOCYTES % (AUTO) 2.4 % (0.0-11.0); NEUTROPHILS # (AUTO) 14.8 K/uL (1.8-8.9); NEUTROPHILS % (AUTO) 93.1 % (38.5-71.5); PLATELET COUNT (AUTO) 255 K/uL (152-348); RED BLOOD CELL COUNT(AUTO) 4.81 MIL/uL (4.06-5.63); WHITE BLOOD COUNT (AUTO) 15.9 K/uL (3.6-10.2)
[2019-12-26 06:18] LABS: CARBON DIOXIDE 22 mmol/L (21-32); CHLORIDE 117 mmol/L (98-107); CREATININE 1.6 mg/dL (0.6-1.3); FERRITIN 1616 ng/mL (26-388); MAGNESIUM 2.7 mg/dL (1.8-2.4); PHOSPHOROUS 4.2 mg/dL (2.5-4.9); POTASSIUM 5.7 mmol/L (3.5-5.1); TRIGLYCERIDES 1684 MG/DL (30-150); UREA NITROGEN, BLOOD 56 mg/dL (7-18)
[2019-12-26 06:22] LABS: GLUCOSE 339 mg/dL (74-106)
--- NOTE | 2019-12-26 06:40 | NUR ---
Condition unchanged. Remains on Diprivan drip at 70 mcg/kg/min. Tolerating NGT feedings at 20 ml/H. Awaiting FNS consult. Addendum: 12/26/19 at 0640 by EMILY SCHNEIDER RN Amended: Links added.
[2019-12-26] MEDS: BLOOD SUGAR DIAGNOSTIC 1 EACH STRIP VI SCH ×5 (07:16→23:21)
--- NOTE | 2019-12-26 07:30 | NUR ---
RECIEVED PT LYING IN BED, HOB AT 35DEGREES UP. SEDATED, ON DIPRIVAN DRIP AT 70MCG/KG/MIN INFUSING WELL. AFEBRILE. HR IS SR WITH OCCASSIONAL PVC. ETT TUBE IS IN PLACE AND VENTILATOR SETTING IS THE SAME, NO APPARENT RESPIRATORY DISTRESS NOTED. TUBE FEEDING IN PROGRESS AT 20ML/HR TOLERATING WELL.
[2019-12-26] MEDS: INSULIN REGULAR, HUMAN 300 UNIT/3 ML VIAL SQ PRN ×3 (07:37→23:23)
[2019-12-26 07:57] LABS: BAND % (MANUAL) 7 % (0-10); LYMPHOCYTES % (MANUAL) 1 % (20-40); METAMYELOCYTES % 6 % (0-1); MYELOCYTES % 4 % (0-0); NEUTROPHILS % (MANUAL) 82 % (42-75)
[2019-12-26] MEDS: methylPREDNISolone SOD SUCC 125 MG/2 ML VIAL IV SCH ×2 (08:12→20:36)
[2019-12-26] MEDS: DOCUSATE SODIUM 100 MG/10 ML LIQUID UDC NG SCH ×2 (08:12→20:36)
[2019-12-26] MEDS: PANTOPRAZOLE ORAL SUSPENSION 40 MG SUSPDR.PKT NG SCH (08:13)
[2019-12-26] MEDS: DONEPEZIL 5 MG TABLET PO SCH (08:14)
[2019-12-26 08:24] LABS: ABG BASE EXCESS -4.9 mmol/L; ABG PH 7.279 (7.350-7.450); ABG PO2 67.4 mmHg (75.0-100.0); ABG SITE RIGHT RADIAL; ABG TOTAL HEMOGLOBIN 13.1 G/dL (13.5-18.0); COHb 0.9 % (0.5-1.5); MetHb 0.4 % (0.0-1.5); O2Hb 90.8 % (94.0-97.0); VENT MODE VENT - A/C; VT, ABG 450 mL
[2019-12-26] MEDS ORDERED: BUMETANIDE 1 MG/4 ML VIAL IV ONE (11:30)
--- NOTE | 2019-12-26 12:30 | NUR ---
DUPLEX STUDY OF THE LOWER EXTREMETIES DONE ORDERED AND ITS NEGATIVE.
[2019-12-26] MEDS: IV 1/2NS 1000 ML 1,000 ML IV PRN (14:19)
--- NOTE | 2019-12-26 14:30 | NUR ---
NOTIFIED DR BELLO REGARDING HIGH TRIGLYCERIDES AND PHARMACIST RECOMMEND TO CHANGE THE DIPRIVAN.
--- NOTE | 2019-12-26 15:00 | NUR ---
VERSED DRIP STARTED ORDERED AT 1MG/HR VIA THE RIGHT UPPER ARM. AND DIPRIVAN IS TAPERED OFF UNTIL DISCONTINUED.
[2019-12-26] MEDS: MIDAZOLAM HCL 50 MG in IV NORMAL SALINE 40 ML IV PRN ×2 (15:05→22:07)
[2019-12-26] MEDS: ACETAMINOPHEN 650 MG/20.3 ML LIQUID UDC NG PRN ×3 (15:53→23:17)
[2019-12-26] MEDS ORDERED: DEXTROSE 50% 50 ML DISP.SYRIN IV PRN (17:00)
--- NOTE | 2019-12-26 18:00 | NUR ---
PT'S BP IS GOING UP IN THE 160'S AND RR IS GETTING TACHYPNEIC. MEDICATED WITH ATIVAN 1MG SLOW IVP, AND WASTED 1MG WITH ANOTHER RN.
--- NOTE | 2019-12-26 19:00 | NUR ---
Received pt orally intubated with 7.5ETT~25cm at lip line, on Crowley ventilator with the following settings of AC-24, Vt-450, PEEP+10, FIO2-50%. Pt tachypneic and tachycardic. Airway care done, pt responded to physical stimuli. HME changed. Resus. bag at bedside. Vent and alarms checked and reset.
--- NOTE | 2019-12-26 19:30 | NUR ---
Report received. Patient admitted 12/19/19 COvid-19 positive. On isolation, orally intubated and to mechanical ventilator with same settings. Patient tachypneic. On Versed drip via JHOANA midline. Will titrate drip for adequate sedation. Assessment completed. Addendum: 12/27/19 at 0055 by EMILY SCHNEIDER RN Amended: Links added. Addendum: 12/27/19 at 0056 by EMILY SCHNEIDER RN Amended: Links added. Addendum: 12/27/19 at 0056 by EMILY SCHNEIDER RN Amended: Links added. Addendum: 12/27/19 at 0056 by EMILY SCHNEIDER RN Amended: Links added. Addendum: 12/27/19 at 0057 by EMILY SCHNEIDER RN Amended: Links added. Addendum: 12/27/19 at 0057 by EMILY SCHNEIDER RN Amended: Links added.
[2019-12-26] MEDS: MIRTAZAPINE 15 MG TABLET NG SCH (20:36)
[2019-12-26] MEDS: ENOXAPARIN SODIUM 40 MG/0.4 ML DISP.SYRIN SQ SCH (20:42)
[2019-12-26] MEDS: CEFEPIME HCL 1 G in IV DEXTROSE 5% 50 ML IV SCH (20:43)
[2019-12-26] MEDS: INSULIN GLARGINE,HUM 300 UNITS/3 ML CARTRIDGE SQ SCH (21:14)
--- NOTE | 2019-12-26 21:20 | NUR ---
RR still in the 30's. Sat 89-90%. Ativan IV given. Will monitor closely. BPs stable. Addendum: 12/26/19 at 2151 by EMILY SCHNEIDER RN Amended: Links added.
--- NOTE | 2019-12-26 21:40 | NUR ---
Remains tachypneic, sat low 90's. Versed drip increased to 7 mg/H. Suctioned by Rene PHILLIPS Spoke to Dr. Banegas; order for Morphine IV received. Addendum: 12/26/19 at 2150 by EMILY SCHNEIDER RN Amended: Links added. Addendum: 12/26/19 at 2151 by EMILY SCHNEIDER RN Amended: Links added.
[2019-12-26] MEDS: MORPHINE SULFATE 4 MG/1 ML DISP.SYRIN IV PRN (22:00)
--- NOTE | 2019-12-26 23:15 | NUR ---
Temp=99.3. Bath and Tylenol given. Tolerating NGT feedings fairly well. Addendum: 12/27/19 at 0101 by EMILY SCHNEIDER RN Amended: Links added.
[2019-12-27] VITALS (45 sets, daily range): BP systolic 113–169; BP diastolic 54–97
[2019-12-27] MEDS: MORPHINE SULFATE 4 MG/1 ML DISP.SYRIN IV PRN ×3 (00:47→17:09)
[2019-12-27] MEDS: LORAZEPAM 2 MG/1 ML VIAL IV PRN ×3 (02:16→22:39)
[2019-12-27] MEDS: IV 1/2NS 1000 ML 1,000 ML IV PRN ×2 (02:48→18:51)
--- NOTE | 2019-12-27 05:20 | NUR ---
Continue monitor pt on present vent settings. At this time pt seemed better. HR-90bpm and RR-24. Oral care done, ETT repositioned during the shift. Resus. bag at bedside. Vent and alarms checked and reset.
[2019-12-27] MEDS: Z GUARD REMEDY PASTE 57 GM TUBE TOP PRN ×2 (05:34→23:52)
[2019-12-27] MEDS: BLOOD SUGAR DIAGNOSTIC 1 EACH STRIP VI SCH ×4 (05:34→23:53)
[2019-12-27] MEDS: INSULIN REGULAR, HUMAN 300 UNIT/3 ML VIAL SQ PRN ×4 (06:16→23:54)
[2019-12-27 06:32] LABS: BASOPHILS % (AUTO) 0.1 % (0.0-2.0); HEMOGLOBIN 13.3 g/dL (12.5-16.3); LYMPHOCYTES # (AUTO) 0.6 K/uL (20.0-40.0); LYMPHOCYTES % (AUTO) 3.9 % (20.5-51.5); MEAN CORPUSCULAR HEMOGLOBIN 27.8 uug (23.8-33.4); MEAN CORPUSCULAR HGB CONC 33 g/dL (32.5-36.3); MONOCYTES # (AUTO) 0.4 K/uL (2.0-10.0); MONOCYTES % (AUTO) 2.6 % (0.0-11.0); NEUTROPHILS # (AUTO) 14.4 K/uL (1.8-8.9); NEUTROPHILS % (AUTO) 93.4 % (38.5-71.5); PLATELET COUNT (AUTO) 247 K/uL (152-348); RED BLOOD CELL COUNT(AUTO) 4.77 MIL/uL (4.06-5.63); WHITE BLOOD COUNT (AUTO) 15.4 K/uL (3.6-10.2)
--- NOTE | 2019-12-27 06:48 | NUR ---
Kept sedated with Versed at 5mg/H. Sat above 94% on 50% FIO2. Respiratory rate ranges 24-30's/min. With PRN Morphine and Ativan IVs given during the shift. Tolerating NGT feedings well at 20 ml/H. Addendum: 12/27/19 at 0650 by EMILY SCHNEIDER RN Amended: Links added.
--- NOTE | 2019-12-27 07:30 | NUR ---
RECIEVED PT IN SEMI FOWLERS POSITION, SEDATED, ON VERSED DRIP AT 5MG/HR VIA RIGHT HAND G#20 INFUSING WELL. RESPONSIVE TO DEEP PAIN AND SUCTIONING, GOOD GAG REFLEX, AND FACIAL GRIMACES. AFEBRILE. HR IS SR WITH OCCASSIONAL PVC'S. RR IS TACHPNEIC MOST OF THE TIME. NO APPARENT DISTRESS NOTED. ETT IS INTACT AND CONNECTED TO MECHANICAL VENTILATOR WITH SETTING OF AC-24, VT-450, PEEP-10, FIO2-50%. [id number] BETWEEN 95-99%. SUCTION MODERATE WHITISH SECRETIONS.
[2019-12-27 08:09] LABS: ABG BASE EXCESS 0.1 mmol/L; ABG HCO3 26.3 mmol/L; ABG PCO2 48.7 mmHg (35.0-45.0); ABG PH 7.351 (7.350-7.450); ABG PO2 57.3 mmHg (75.0-100.0); ABG SITE LEFT RADIAL; ABG TOTAL HEMOGLOBIN 14.1 G/dL (13.5-18.0); COHb 1.4 % (0.5-1.5); MetHb 0.4 % (0.0-1.5); O2Hb 88.4 % (94.0-97.0); VENT MODE VENT - A/C 24; VT, ABG 450 mL
[2019-12-27] MEDS: MIDAZOLAM HCL 50 MG in IV NORMAL SALINE 40 ML IV PRN ×2 (08:29→18:06)
--- NOTE | 2019-12-27 09:00 | NUR ---
TOLERATING TUBE FEEDING NEPRO AT 20ML/HR VIA NGT. NO RESIDUAL NOTED.
[2019-12-27 09:01] LABS: CARBON DIOXIDE 20 mmol/L (21-32); CHLORIDE 115 mmol/L (98-107); CREATININE 1.5 mg/dL (0.6-1.3); GLUCOSE 288 mg/dL (74-106); MAGNESIUM 2.4 mg/dL (1.8-2.4); PHOSPHOROUS 3.5 mg/dL (2.5-4.9); POTASSIUM 5.9 mmol/L (3.5-5.1); UREA NITROGEN, BLOOD 52 mg/dL (7-18)
[2019-12-27] MEDS: methylPREDNISolone SOD SUCC 125 MG/2 ML VIAL IV SCH ×2 (09:01→20:15)
[2019-12-27] MEDS: DONEPEZIL 5 MG TABLET PO SCH (09:02)
[2019-12-27] MEDS: PANTOPRAZOLE ORAL SUSPENSION 40 MG SUSPDR.PKT NG SCH (09:02)
[2019-12-27] MEDS: DOCUSATE SODIUM 100 MG/10 ML LIQUID UDC NG SCH ×2 (09:02→20:15)
[2019-12-27] MEDS: METOPROLOL TARTRATE 25 MG TABLET NG SCH ×2 (09:03→20:15)
--- NOTE | 2019-12-27 09:33 | NUR ---
PT'S BP IS UP IN THE 160 AND RR IS UP IN THE 30'S. MEDICATED WITH MORPHINE 4MG SLOW IVP.
[2019-12-27] MEDS ORDERED: SODIUM POLYSTYRENE SULFONATE 15 G/60 ML LIQUID UDC NG ONE (09:45)
--- NOTE | 2019-12-27 10:00 | NUR ---
K IS 5.9. KSYEXALATE 30GMS GIVEN VIA NGT ORDERED.
--- NOTE | 2019-12-27 17:00 | NUR ---
FEBRILE. TEMP-100.8F. COLD SPONGE GIVEN. MEDICATED WITH TYLENOL 650MG VIA NGT. RESPIRATION IS VERY FAST IN THE 40'S AND HEART IS MORE THAN 100BEATS/MIN. IV MORPINE 4MG SLOW IVP GIVEN FOR VSS CHANGES. VERSED IN PROGRESS.
--- NOTE | 2019-12-27 17:00 | NUR ---
IV MORPHINE 4MG SLOW IVP GIVEN FOR VSS CHANGES. BP DOWN AND RR DOWN.
[2019-12-27] MEDS: ACETAMINOPHEN 650 MG/20.3 ML LIQUID UDC NG PRN (17:23)
[2019-12-27] MEDS: CEFEPIME HCL 1 G in IV DEXTROSE 5% 50 ML IV SCH (20:15)
[2019-12-27] MEDS: MIRTAZAPINE 15 MG TABLET NG SCH (20:16)
[2019-12-27] MEDS: ENOXAPARIN SODIUM 40 MG/0.4 ML DISP.SYRIN SQ SCH (20:16)
--- NOTE | 2019-12-27 20:30 | NUR ---
DUE MEDICATION GIVEN VIA NGT TUBE ,FLUSHED NGT , ZERO RESIDUAL , NEPRO IN PROGRESS AT 20 ML /HR . HOB UP AND ASPIRATION PRECAUTION OBSERVED . RECTAL TUBE IN PLACED NO STOOL NOTED . GIVEN DOCUSATE REGULAR SCHEULED MEDICATION .
--- NOTE | 2019-12-27 20:30 | NUR ---
TURNED AND REPOSITION PATIENT ,OFFLOADED BACK WITH PILLOWS HEELS OFF BED .SCDS USED . SUCTION VIA ETT AND VIA MOUTH . ORAL CARE DONE . GRIMACES WHEN SUCTION .
[2019-12-27] MEDS: INSULIN GLARGINE,HUM 300 UNITS/3 ML CARTRIDGE SQ SCH (20:49)
[2019-12-28] VITALS (27 sets, daily range): BP systolic 109–169; BP diastolic 49–88
[2019-12-28] MEDS: MIDAZOLAM HCL 50 MG in IV NORMAL SALINE 40 ML IV PRN ×3 (02:25→16:57)
[2019-12-28] MEDS: LORAZEPAM 2 MG/1 ML VIAL IV PRN (03:07)
--- NOTE | 2019-12-28 04:30 | NUR ---
am care done,bath patient and changed soiled linens and gown . z guard applied to sacral area and placed Mepilex. f/ c done and oral care done . turned and reposition .
[2019-12-28] MEDS: MORPHINE SULFATE 4 MG/1 ML DISP.SYRIN IV PRN ×3 (05:15→20:36)
[2019-12-28 05:27] LABS: BASOPHILS # (AUTO) 0.1 K/uL (0.0-8.0); BASOPHILS % (AUTO) 0.7 % (0.0-2.0); HEMATOCRIT 40.7 % (36.7-47.1); HEMOGLOBIN 13.4 g/dL (12.5-16.3); LYMPHOCYTES # (AUTO) 0.6 K/uL (20.0-40.0); LYMPHOCYTES % (AUTO) 4.6 % (20.5-51.5); MEAN CORPUSCULAR HEMOGLOBIN 27.7 uug (23.8-33.4); MEAN CORPUSCULAR HGB CONC 33 g/dL (32.5-36.3); MEAN CORPUSCULAR VOLUME 83.9 fL (73.0-96.2); MONOCYTES # (AUTO) 0.3 K/uL (2.0-10.0); MONOCYTES % (AUTO) 2.2 % (0.0-11.0); NEUTROPHILS # (AUTO) 11.7 K/uL (1.8-8.9); NEUTROPHILS % (AUTO) 92.5 % (38.5-71.5); PLATELET COUNT (AUTO) 168 K/uL (152-348); RED BLOOD CELL COUNT(AUTO) 4.85 MIL/uL (4.06-5.63); WHITE BLOOD COUNT (AUTO) 12.7 K/uL (3.6-10.2)
[2019-12-28] MEDS: BLOOD SUGAR DIAGNOSTIC 1 EACH STRIP VI SCH ×3 (05:27→18:11)
[2019-12-28] MEDS: INSULIN REGULAR, HUMAN 300 UNIT/3 ML VIAL SQ PRN ×3 (05:28→18:10)
[2019-12-28 05:45] LABS: CARBON DIOXIDE 27 mmol/L (21-32); CHLORIDE 114 mmol/L (98-107); CREATININE 1.5 mg/dL (0.6-1.3); GLUCOSE 277 mg/dL (74-106); MAGNESIUM 2.2 mg/dL (1.8-2.4); PHOSPHOROUS 4.7 mg/dL (2.5-4.9); POTASSIUM 5.3 mmol/L (3.5-5.1); UREA NITROGEN, BLOOD 57 mg/dL (7-18)
--- NOTE | 2019-12-28 06:00 | NUR ---
f/s done and follow insulin sliding scale .
[2019-12-28 06:23] LABS: BAND % (MANUAL) 3 % (0-10); LYMPHOCYTES % (MANUAL) 2 % (20-40); MONOCYTES % (MANUAL) 4 % (2-10); NEUTROPHILS % (MANUAL) 91 % (42-75)
[2019-12-28] MEDS: PANTOPRAZOLE ORAL SUSPENSION 40 MG SUSPDR.PKT NG SCH (08:20)
[2019-12-28] MEDS: DONEPEZIL 5 MG TABLET PO SCH (08:20)
[2019-12-28] MEDS: methylPREDNISolone SOD SUCC 125 MG/2 ML VIAL IV SCH ×2 (08:21→20:33)
[2019-12-28] MEDS: DOCUSATE SODIUM 100 MG/10 ML LIQUID UDC NG SCH ×2 (08:21→20:34)
[2019-12-28] MEDS: METOPROLOL TARTRATE 25 MG TABLET NG SCH ×2 (08:21→20:34)
[2019-12-28] MEDS: NEPRO 1000 ML NG PRN (10:15)
--- NOTE | 2019-12-28 14:40 | NUR ---
Dr. Hope here to see pt. Full report given. New orders received.
[2019-12-28] MEDS: IV 1/2NS 1000 ML 1,000 ML IV PRN (16:19)
--- NOTE | 2019-12-28 20:00 | NUR ---
PATIENT TOLERATING ETT AC 24/450/50% PEEP 10 , SATURATION 97 % ABD RR 25 TO 30.SUCTION VIA ETT AND VIA MOUTH . HOB UP. PATIENT ON VERSED FOR SEDATION .
--- NOTE | 2019-12-28 20:05 | NUR ---
Pt received on Crowley settings AC 24, VT 450, PEEP+10 and FIO2-60%. 7.5 ETT is patent and secure at approx. 25cm at the lip. Pt to be monitored throughout the shift and PRN SX. Pt is in no resp. distress and appears to be tolerating ventilator settings well. Crowley alarms have been checked and remain audible.
--- NOTE | 2019-12-28 20:30 | NUR ---
TURNED AND REPOSITION PATIENT OFFLOADED BACK WITH PILLOW . F/S TO BSD AND RECTAL TUBE IN PLACED .
[2019-12-28] MEDS: CEFEPIME HCL 1 G in IV DEXTROSE 5% 50 ML IV SCH (20:33)
[2019-12-28] MEDS: MIRTAZAPINE 15 MG TABLET NG SCH (20:34)
[2019-12-28] MEDS: INSULIN GLARGINE,HUM 300 UNITS/3 ML CARTRIDGE SQ SCH (20:45)
[2019-12-28] MEDS: ENOXAPARIN SODIUM 40 MG/0.4 ML DISP.SYRIN SQ SCH (20:46)
--- NOTE | 2019-12-28 21:00 | NUR ---
F/S DONE AND 238 ,GIVEN ISS GIVEN SEE EMAR .
[2019-12-29] VITALS (28 sets, daily range): BP systolic 93–162; BP diastolic 46–87
[2019-12-29] MEDS: BLOOD SUGAR DIAGNOSTIC 1 EACH STRIP VI SCH ×5 (00:01→23:34)
[2019-12-29] MEDS: INSULIN REGULAR, HUMAN 300 UNIT/3 ML VIAL SQ PRN ×5 (00:03→23:35)
[2019-12-29] MEDS: ACETAMINOPHEN 650 MG/20.3 ML LIQUID UDC NG PRN ×2 (00:54→19:45)
--- NOTE | 2019-12-29 00:55 | NUR ---
GIVEN TYLENOL PRN FOR FEVER C/O TEMP 100.8 ORALLY ,ICE PACKS APPLIED TO BIALTERAL ARM PIT AND BILATERAL GROIN .
[2019-12-29] MEDS: MIDAZOLAM HCL 50 MG in IV NORMAL SALINE 40 ML IV PRN ×3 (01:16→17:51)
[2019-12-29] MEDS: MORPHINE SULFATE 4 MG/1 ML DISP.SYRIN IV PRN ×3 (04:44→19:45)
[2019-12-29 05:56] LABS: BASOPHILS # (AUTO) 0.2 K/uL (0.0-8.0); BASOPHILS % (AUTO) 1.5 % (0.0-2.0); EOSINOPHILS % (AUTO) 0.2 % (0.0-7.0); HEMATOCRIT 42.1 % (36.7-47.1); HEMOGLOBIN 13.5 g/dL (12.5-16.3); LYMPHOCYTES # (AUTO) 0.8 K/uL (20.0-40.0); LYMPHOCYTES % (AUTO) 5.6 % (20.5-51.5); MEAN CORPUSCULAR HEMOGLOBIN 27.2 uug (23.8-33.4); MEAN CORPUSCULAR HGB CONC 32 g/dL (32.5-36.3); MONOCYTES # (AUTO) 0.5 K/uL (2.0-10.0); MONOCYTES % (AUTO) 3.7 % (0.0-11.0); NEUTROPHILS # (AUTO) 12.9 K/uL (1.8-8.9); PLATELET COUNT (AUTO) 135 K/uL (152-348); RED BLOOD CELL COUNT(AUTO) 4.95 MIL/uL (4.06-5.63); WHITE BLOOD COUNT (AUTO) 14.5 K/uL (3.6-10.2)
[2019-12-29 06:23] LABS: CARBON DIOXIDE 29 mmol/L (21-32); CHLORIDE 114 mmol/L (98-107); CREATININE 1.6 mg/dL (0.6-1.3); FERRITIN 1564 ng/mL (26-388); GLUCOSE 210 mg/dL (74-106); LACTATE DEHYDROGENASE 413 U/L (85-227); MAGNESIUM 2.4 mg/dL (1.8-2.4); POTASSIUM 5.5 mmol/L (3.5-5.1); UREA NITROGEN, BLOOD 69 mg/dL (7-18)
[2019-12-29] MEDS: LORAZEPAM 2 MG/1 ML VIAL IV PRN ×2 (07:12)
[2019-12-29] MEDS: DOCUSATE SODIUM 100 MG/10 ML LIQUID UDC NG SCH ×2 (07:46→20:29)
[2019-12-29] MEDS: methylPREDNISolone SOD SUCC 125 MG/2 ML VIAL IV SCH ×2 (07:46→20:31)
[2019-12-29] MEDS: PANTOPRAZOLE ORAL SUSPENSION 40 MG SUSPDR.PKT NG SCH (07:47)
[2019-12-29] MEDS: METOPROLOL TARTRATE 25 MG TABLET NG SCH ×2 (07:47→20:30)
[2019-12-29] MEDS: DONEPEZIL 5 MG TABLET PO SCH (07:49)
[2019-12-29 08:30] LABS: ABG BASE EXCESS 1.2 mmol/L; ABG HCO3 29.8 mmol/L; ABG PCO2 65.7 mmHg (35.0-45.0); ABG PH 7.275 (7.350-7.450); ABG PO2 62.2 mmHg (75.0-100.0); ABG SITE LEFT RADIAL; ABG TOTAL HEMOGLOBIN 14.6 G/dL (13.5-18.0); COHb 1.7 % (0.5-1.5); MetHb 0.5 % (0.0-1.5); O2Hb 87.3 % (94.0-97.0); VENT MODE VENT - A/C; VT, ABG 450 mL
[2019-12-29] MEDS ORDERED: SODIUM POLYSTYRENE SULFONATE 15 G/60 ML LIQUID UDC PO ONE (11:15)
[2019-12-29] MEDS: IV D5W 1000ML 1,000 ML IV PRN (11:27)
[2019-12-29] MEDS ORDERED: IPRATROPIUM BROMIDE 12.9 GM INHALER INH SCH (11:30)
[2019-12-29] MEDS: HYDROCHLOROTHIAZIDE 25 MG TABLET PO SCH (11:33)
[2019-12-29] MEDS: ALBUTEROL SULFATE 8 GM HFA.AER.AD INH SCH ×3 (11:40→19:45)
--- NOTE | 2019-12-29 19:30 | NUR ---
Report received. Patient admitted 12/19/19 DX: PNA, +COVID-19. On mechanical ventilator via oral ETT; settings:AC=24, FIO2=80%, JH=246rl and PEEP=10. Sat 94% and above, but patient is tachypneic. On continuous Versed drip at 7 mg/H via SHARI PICC line. COVID-19 isolation maintained. Addendum: 12/29/19 at 2147 by EMILY SCHNEIDER RN Amended: Links added.
--- NOTE | 2019-12-29 20:00 | NUR ---
Temp=99.2 orally. Tylenol given. Partial bath given; turned and repositioned. Suctioned by RT; specimen sent to lab for C/S. Addendum: 12/29/19 at 2149 by EMILY SCHNEIDER RN Amended: Links added.
[2019-12-29] MEDS: MIRTAZAPINE 15 MG TABLET NG SCH (20:29)
[2019-12-29] MEDS: CEFEPIME HCL 1 G in IV DEXTROSE 5% 50 ML IV SCH (20:31)
[2019-12-29] MEDS: ENOXAPARIN SODIUM 40 MG/0.4 ML DISP.SYRIN SQ SCH (21:05)
[2019-12-29] MEDS: INSULIN GLARGINE,HUM 300 UNITS/3 ML CARTRIDGE SQ SCH (21:05)
[2019-12-30] VITALS (29 sets, daily range): BP systolic 94–167; BP diastolic 37–90
[2019-12-30] MEDS: ALBUTEROL SULFATE 8 GM HFA.AER.AD INH SCH ×7 (00:14→23:05)
[2019-12-30] MEDS: IV D5W 1000ML 1,000 ML IV PRN (01:33)
[2019-12-30] MEDS: MIDAZOLAM HCL 50 MG in IV NORMAL SALINE 40 ML IV PRN ×4 (01:37→19:42)
--- NOTE | 2019-12-30 05:17 | NUR ---
Accucheck from blood drawn via SHARI PICC line =439; repeated accucheck from R oekx=[id number]. Will await result from labs.
[2019-12-30 05:47] LABS: BASOPHILS # (AUTO) 0.1 K/uL (0.0-8.0); BASOPHILS % (AUTO) 0.7 % (0.0-2.0); EOSINOPHILS % (AUTO) 0.3 % (0.0-7.0); HEMATOCRIT 39.6 % (36.7-47.1); HEMOGLOBIN 12.6 g/dL (12.5-16.3); LYMPHOCYTES # (AUTO) 0.6 K/uL (20.0-40.0); LYMPHOCYTES % (AUTO) 4.5 % (20.5-51.5); MEAN CORPUSCULAR HEMOGLOBIN 27.3 uug (23.8-33.4); MEAN CORPUSCULAR HGB CONC 32 g/dL (32.5-36.3); MEAN CORPUSCULAR VOLUME 85.7 fL (73.0-96.2); MONOCYTES # (AUTO) 0.5 K/uL (2.0-10.0); MONOCYTES % (AUTO) 3.6 % (0.0-11.0); NEUTROPHILS # (AUTO) 12.6 K/uL (1.8-8.9); NEUTROPHILS % (AUTO) 90.9 % (38.5-71.5); PLATELET COUNT (AUTO) 122 K/uL (152-348); RED BLOOD CELL COUNT(AUTO) 4.62 MIL/uL (4.06-5.63); WHITE BLOOD COUNT (AUTO) 13.9 K/uL (3.6-10.2)
[2019-12-30] MEDS: BLOOD SUGAR DIAGNOSTIC 1 EACH STRIP VI SCH ×3 (06:12→18:36)
[2019-12-30] MEDS: INSULIN REGULAR, HUMAN 300 UNIT/3 ML VIAL SQ PRN ×4 (06:15→23:02)
--- NOTE | 2019-12-30 06:15 | NUR ---
service center technicianramy Mejia called for abnormal [id number]. Sliding scale coverage given. [facility] called; spoke to Jed Machado. Ordered to repeat BMP. Lab notified.
[2019-12-30] MEDS: NEPRO 1000 ML NG PRN (06:17)
--- NOTE | 2019-12-30 06:45 | NUR ---
Remains on Versed drip @ 7mg/H. Tolerating NGT feedings at 20 ml/H. Condition unchanged. Addendum: 12/30/19 at 0645 by EMILY SCHNEIDER RN Amended: Links added.
[2019-12-30 07:31] LABS: ABG BASE EXCESS 2.6 mmol/L; ABG HCO3 30.2 mmol/L; ABG PO2 66.8 mmHg (75.0-100.0); ABG SITE LEFT RADIAL; ABG TOTAL HEMOGLOBIN 13.8 G/dL (13.5-18.0); COHb 1.2 % (0.5-1.5); MetHb 0.4 % (0.0-1.5); O2Hb 91.1 % (94.0-97.0); VENT MODE VENT - A/C; VT, ABG 450 mL
--- NOTE | 2019-12-30 07:52 | NUR ---
pulmonary services, Dr. Hope in the unit to see and examine patient, full report given both by me and maintenance mechanic 2nd shift rn. still in the unit. See order hx.
[2019-12-30] MEDS: DOCUSATE SODIUM 100 MG/10 ML LIQUID UDC NG SCH ×2 (08:02→20:19)
[2019-12-30] MEDS: METOPROLOL TARTRATE 25 MG TABLET NG SCH ×2 (08:03→21:00)
[2019-12-30] MEDS: PANTOPRAZOLE ORAL SUSPENSION 40 MG SUSPDR.PKT NG SCH (08:03)
[2019-12-30] MEDS: methylPREDNISolone SOD SUCC 125 MG/2 ML VIAL IV SCH ×2 (08:03→20:20)
[2019-12-30] MEDS: DONEPEZIL 5 MG TABLET PO SCH (08:04)
[2019-12-30] MEDS: HYDROCHLOROTHIAZIDE 25 MG TABLET PO SCH (08:04)
[2019-12-30 08:28] LABS: CARBON DIOXIDE 28 mmol/L (21-32); CHLORIDE 108 mmol/L (98-107); CREATININE 1.6 mg/dL (0.6-1.3); MAGNESIUM 2.5 mg/dL (1.8-2.4); PHOSPHOROUS 4.9 mg/dL (2.5-4.9); POTASSIUM 5.5 mmol/L (3.5-5.1); UREA NITROGEN, BLOOD 73 mg/dL (7-18)
[2019-12-30 08:40] LABS: GLUCOSE 421 mg/dL (74-106)
--- NOTE | 2019-12-30 12:00 | NUR ---
Attending physician Sania Morgan in the unit to see and examine patient, full report given orders received and implemented.
[2019-12-30] MEDS ORDERED: SODIUM POLYSTYRENE SULFONATE 15 G/60 ML LIQUID UDC NG ONE (12:45)
[2019-12-30] MEDS: IV 1/2NS 1000 ML 1,000 ML IV PRN (13:19)
[2019-12-30] MEDS: IPRATROPIUM BROMIDE 12.9 GM INHALER INH SCH ×3 (15:01→23:05)
[2019-12-30] MEDS: MORPHINE SULFATE 4 MG/1 ML DISP.SYRIN IV PRN (15:44)
[2019-12-30] MEDS: ACETAMINOPHEN 650 MG/20.3 ML LIQUID UDC NG PRN (15:55)
--- NOTE | 2019-12-30 16:16 | NUR ---
HATTIE Chew called to be notified of fever 101.8 orders received and implemented.
--- NOTE | 2019-12-30 19:15 | NUR ---
received patient , lethargic/ sedated , responds to deep pain with no spontaneous eye opening , iv drip versed at 7 mg , 1/2 ns at 70 ml . piccline left upper arm , ac vent seetings of ac 24 , tv 450 , p 10 fi02 % at 80 % , with ett , flexi seal and mendez intact , no fever ,
--- NOTE | 2019-12-30 19:37 | NUR ---
Pt received on Crowley settings AC 24, VT 450, PEEP+10 and FIO2-80%. 7.5 ETT is patent and secure at approx. 25cm at the lip. Pt to be monitored throughout the shift and PRN SX. Pt is in no resp. distress and appears to be tolerating ventilator settings well. Crowley alarms have been checked and remain audible.
--- NOTE | 2019-12-30 20:00 | NUR ---
liang id , is here to see patient , updated on patient's condition , new antibiotics ordered
[2019-12-30] MEDS: CEFEPIME HCL 1 G in IV DEXTROSE 5% 50 ML IV SCH (20:19)
[2019-12-30] MEDS: MIRTAZAPINE 15 MG TABLET NG SCH (20:19)
[2019-12-30] MEDS: ENOXAPARIN SODIUM 40 MG/0.4 ML DISP.SYRIN SQ SCH (20:23)
[2019-12-30] MEDS ORDERED: INSULIN GLARGINE,HUM 300 UNITS/3 ML CARTRIDGE SQ SCH (21:00)
[2019-12-30] MEDS ORDERED: MEROPENEM 500 MG in IV NORMAL SALINE 50 ML IV SCH (21:45)
[2019-12-30] MEDS ORDERED: VANCOMYCIN IV 1,000 MG in IV DEXTROSE 5% 250 ML IV ONE (22:15)
[2019-12-30] MEDS: FLUCONAZOLE 100 MG TABLET GT SCH (23:05)
--- NOTE | 2019-12-30 23:22 | NUR ---
daily abg is being monitored and oxygenation tolerance on current oxygen being monitored Addendum: 12/30/19 at 2322 by MASON CARPENTER RN Amended: Saeid added. Addendum: 12/30/19 at 2323 by MASON CARPENTER RN Amended: Saeid added. Addendum: 12/30/19 at 2324 by MASON CARPENTER RN Amended: Links added.
--- NOTE | 2019-12-30 23:23 | NUR ---
placement of et tube being monitored and patient's aoc and breathing tolerance to current vent settings Addendum: 12/30/19 at 2323 by MASON CARPENTER RN Amended: Links added. Addendum: 12/30/19 at 2324 by MASON CARPENTER RN Amended: Links added.
--- NOTE | 2019-12-30 23:24 | NUR ---
temperature and lab levels being monitored , id plant senior manager , was here to see patient and ordered new antibiotics Addendum: 12/30/19 at 2324 by MASON CARPENTER RN Amended: Links added.
[2019-12-30] MEDS ORDERED: VANCOMYCIN IV 200 ML ONE (23:36)
[2019-12-30] MEDS ORDERED: MEROPENEM 500 MG VIAL IV ONE (23:36)
[2019-12-31] VITALS (35 sets, daily range): BP systolic 87–138; BP diastolic 36–77
[2019-12-31] MEDS: ACETAMINOPHEN 650 MG/20.3 ML LIQUID UDC NG PRN ×2 (01:21→15:06)
[2019-12-31] MEDS: IPRATROPIUM BROMIDE 12.9 GM INHALER INH SCH ×6 (02:37→23:06)
[2019-12-31] MEDS: ALBUTEROL SULFATE 8 GM HFA.AER.AD INH SCH ×6 (02:37→23:06)
[2019-12-31] MEDS: MIDAZOLAM HCL 50 MG in IV NORMAL SALINE 40 ML IV PRN ×2 (03:13→16:30)
[2019-12-31] MEDS: LORAZEPAM 2 MG/1 ML VIAL IV PRN (03:33)
[2019-12-31] MEDS: IV 1/2NS 1000 ML 1,000 ML IV PRN (03:42)
--- NOTE | 2019-12-31 04:00 | NUR ---
resting comfortably , responds to deep pain , same vent settings , versed iv still at 7 mg , suctioned , via ett , small , non productive , iv stil at 1/2 ns at 70 ml hr
[2019-12-31 05:47] LABS: BASOPHILS # (AUTO) 0.2 K/uL (0.0-8.0); BASOPHILS % (AUTO) 1.2 % (0.0-2.0); HEMATOCRIT 35.3 % (36.7-47.1); HEMOGLOBIN 11.4 g/dL (12.5-16.3); LYMPHOCYTES # (AUTO) 0.2 K/uL (20.0-40.0); LYMPHOCYTES % (AUTO) 1.3 % (20.5-51.5); MEAN CORPUSCULAR HEMOGLOBIN 27.6 uug (23.8-33.4); MEAN CORPUSCULAR HGB CONC 32 g/dL (32.5-36.3); MEAN CORPUSCULAR VOLUME 85.4 fL (73.0-96.2); MONOCYTES # (AUTO) 0.2 K/uL (2.0-10.0); MONOCYTES % (AUTO) 1.2 % (0.0-11.0); NEUTROPHILS # (AUTO) 14.8 K/uL (1.8-8.9); NEUTROPHILS % (AUTO) 96.3 % (38.5-71.5); PLATELET COUNT (AUTO) 107 K/uL (152-348); RED BLOOD CELL COUNT(AUTO) 4.14 MIL/uL (4.06-5.63); WHITE BLOOD COUNT (AUTO) 15.4 K/uL (3.6-10.2)
[2019-12-31 06:11] LABS: CARBON DIOXIDE 28 mmol/L (21-32); CHLORIDE 104 mmol/L (98-107); CREATININE 1.6 mg/dL (0.6-1.3); MAGNESIUM 1.9 mg/dL (1.8-2.4); PHOSPHOROUS 5.2 mg/dL (2.5-4.9); POTASSIUM 4.4 mmol/L (3.5-5.1); UREA NITROGEN, BLOOD 63 mg/dL (7-18)
[2019-12-31 06:16] LABS: GLUCOSE 338 mg/dL (74-106)
[2019-12-31] MEDS: BLOOD SUGAR DIAGNOSTIC 1 EACH STRIP VI SCH ×4 (06:20→18:21)
[2019-12-31] MEDS: INSULIN REGULAR, HUMAN 300 UNIT/3 ML VIAL SQ PRN ×3 (06:22→18:26)
[2019-12-31] MEDS ORDERED: MEROPENEM 500 MG in IV NORMAL SALINE 50 ML IV SCH (06:45)
--- NOTE | 2019-12-31 07:15 | NUR ---
PT RECEIVED ORALLY INTUBATED WITH A SIZE 7.5 ETT SECURED WITH ANCHOR-FAST APPROX. 25CM AT THE LIP. PT IS ON A SÁNCHEZ VENT ON SETTINGS OF A/C 24, VT 450, 80% FIO2, PEEP +10. VENT PARAMETERS AND ALARMS CHECKED, ALARMS ARE AUDIBLE. ALBUTEROL MDI TX GIVEN IN-LINE, NO ADVERSE REACTION NOTED. PT IS TOLERATING VENT WELL, NO RESP. DISTRESS NOTED. BVM AT BEDSIDE. VENT PLUGGED INTO RED OUTLET. SUCTION PRN. WILL CONTINUE TO MONITOR.
[2019-12-31 07:37] LABS: ABG HCO3 26.8 mmol/L; ABG PCO2 47.4 mmHg (35.0-45.0); ABG PO2 102.8 mmHg (75.0-100.0); ABG SITE RIGHT RADIAL; ABG TOTAL HEMOGLOBIN 11.9 G/dL (13.5-18.0); MetHb 0.3 % (0.0-1.5); O2Hb 96.7 % (94.0-97.0); VENT MODE VENT - A/C; VT, ABG 450 mL
--- NOTE | 2019-12-31 08:30 | NUR ---
DOCTOR BELLO IN THE UNIT TO SEE PATIENT. PLEASE REFER TO ORDER HISTORY FOR ANY NEW ORDERS.
[2019-12-31] MEDS: DONEPEZIL 5 MG TABLET PO SCH (08:52)
[2019-12-31] MEDS: PANTOPRAZOLE ORAL SUSPENSION 40 MG SUSPDR.PKT NG SCH (08:52)
[2019-12-31] MEDS: FLUCONAZOLE 100 MG TABLET GT SCH (08:52)
[2019-12-31] MEDS: methylPREDNISolone SOD SUCC 125 MG/2 ML VIAL IV SCH ×2 (08:54→21:05)
[2019-12-31] MEDS: DOCUSATE SODIUM 100 MG/10 ML LIQUID UDC NG SCH ×2 (08:55→21:00)
[2019-12-31] MEDS: METOPROLOL TARTRATE 25 MG TABLET NG SCH ×2 (08:56→21:06)
[2019-12-31] MEDS ORDERED: VANCOMYCIN IV 1,000 MG in IV DEXTROSE 5% 250 ML IV ONE (09:00)
[2019-12-31] MEDS: HYDROCHLOROTHIAZIDE 25 MG TABLET PO SCH (09:00)
[2019-12-31] MEDS ORDERED: MEROPENEM 0.5 G in IV NORMAL SALINE 50 ML IV SCH (09:00)
--- NOTE | 2019-12-31 13:00 | NUR ---
DOCTOR IRENA RIVERA IN THE UNIT TO SEE PATIENT INFORMED OF ELEVATED BLOOD SUGARS. NEW ORDERS OBTAINED PLEASE REFER TO ORDER HISTORY FOR FURTHER ORDERS.
--- NOTE | 2019-12-31 13:07 | NUR ---
Clinical Pharmacy Note: Vancomycin Pharmacy to Dose Subjective: To start vancomycin in this 69y/o male for indication of "suspected infection" per ID Objective: weight 69kg height 170cm BUN/SCr 63/1.6 wbc 15.4 temp 98.9 1gm vanco given in ER 12/29 @2357 Random with am labs: 11.3 Assessment/Plan As renal function appears reduced will dose per level for now. Per today's random, dosed another 1gm vanco today at 0900. Next random due with am labs tomorrow. Will check and re-dose as appropriately. Will continue to follow
[2019-12-31] MEDS: INSULIN GLARGINE,HUM 300 UNITS/3 ML CARTRIDGE SQ SCH ×2 (15:02→21:10)
--- NOTE | 2019-12-31 15:45 | NUR ---
VENT CHANGES MADE PER MD ORDER. PT IS NOW ON SETTINGS OF A/C 24, VT 400, 70% FIO2, AND PEEP +10. RN IS AWARE. ALBUTEROL/ATROVENT MDI GIVEN IN-LINE, NO ADVERSE REACTION NOTED. PT IS TOLERATING VENT SETTINGS WELL, NO RESP. DISTRESS NOTED. SUCTION PRN. WILL CONTINUE TO MONITOR.
[2019-12-31] MEDS: MEROPENEM 1 G in IV NORMAL SALINE 100 ML IV SCH (21:03)
[2019-12-31] MEDS: MIRTAZAPINE 15 MG TABLET NG SCH (21:06)
[2019-12-31] MEDS: ENOXAPARIN SODIUM 40 MG/0.4 ML DISP.SYRIN SQ SCH (21:11)
[2020-01-01] VITALS (29 sets, daily range): BP systolic 97–172; BP diastolic 55–83
[2020-01-01] MEDS: INSULIN REGULAR, HUMAN 300 UNIT/3 ML VIAL SQ PRN ×5 (00:31→18:08)
[2020-01-01] MEDS: BLOOD SUGAR DIAGNOSTIC 1 EACH STRIP VI SCH ×4 (00:37→18:04)
[2020-01-01] MEDS ORDERED: LORAZEPAM 2 MG/1 ML VIAL ONE (01:29)
[2020-01-01] MEDS: ALBUTEROL SULFATE 8 GM HFA.AER.AD INH SCH ×6 (03:20→23:22)
[2020-01-01] MEDS: IPRATROPIUM BROMIDE 12.9 GM INHALER INH SCH ×6 (03:20→23:22)
[2020-01-01] MEDS: IV 1/2NS 1000 ML 1,000 ML IV PRN (04:15)
[2020-01-01] MEDS: MIDAZOLAM HCL 50 MG in IV NORMAL SALINE 40 ML IV PRN ×2 (06:30→16:56)
[2020-01-01 06:32] LABS: BASOPHILS # (AUTO) 0.2 K/uL (0.0-8.0); BASOPHILS % (AUTO) 0.8 % (0.0-2.0); HEMATOCRIT 38.8 % (36.7-47.1); HEMOGLOBIN 12.5 g/dL (12.5-16.3); LYMPHOCYTES # (AUTO) 0.5 K/uL (20.0-40.0); LYMPHOCYTES % (AUTO) 2.1 % (20.5-51.5); MEAN CORPUSCULAR HGB CONC 32 g/dL (32.5-36.3); MEAN CORPUSCULAR VOLUME 84.1 fL (73.0-96.2); MONOCYTES # (AUTO) 0.7 K/uL (2.0-10.0); MONOCYTES % (AUTO) 2.9 % (0.0-11.0); NEUTROPHILS % (AUTO) 94.2 % (38.5-71.5); RED BLOOD CELL COUNT(AUTO) 4.61 MIL/uL (4.06-5.63)
[2020-01-01 06:39] LABS: CARBON DIOXIDE 32 mmol/L (21-32); CHLORIDE 107 mmol/L (98-107); CREATININE 1.5 mg/dL (0.6-1.3); GLUCOSE 277 mg/dL (74-106); MAGNESIUM 2.2 mg/dL (1.8-2.4); PHOSPHOROUS 4.2 mg/dL (2.5-4.9); POTASSIUM 4.2 mmol/L (3.5-5.1); UREA NITROGEN, BLOOD 69 mg/dL (7-18); VANCOMYCIN,RANDOM 15.2 ug/mL (18.0-26.0)
[2020-01-01] MEDS: NITROGLYCERIN OINT 1 GM PACKET TP PRN (06:53)
[2020-01-01 07:32] LABS: PLATELET COUNT (AUTO) 161 K/uL (152-348); WHITE BLOOD COUNT (AUTO) 24.4 K/uL (3.6-10.2)
[2020-01-01 07:57] LABS: ABG BASE EXCESS 4.7 mmol/L; ABG HCO3 29.5 mmol/L; ABG PCO2 44.5 mmHg (35.0-45.0); ABG PH 7.439 (7.350-7.450); ABG PO2 61.5 mmHg (75.0-100.0); ABG SITE LEFT RADIAL; ABG TOTAL HEMOGLOBIN 13.2 G/dL (13.5-18.0); COHb 1.1 % (0.5-1.5); MetHb 0.5 % (0.0-1.5); VENT MODE VENT - A/C 24; VT, ABG 400 mL
[2020-01-01] MEDS: MEROPENEM 1 G in IV NORMAL SALINE 100 ML IV SCH ×2 (08:05→20:17)
[2020-01-01] MEDS: FLUCONAZOLE 100 MG TABLET GT SCH (08:05)
[2020-01-01] MEDS: methylPREDNISolone SOD SUCC 125 MG/2 ML VIAL IV SCH ×2 (08:06→20:14)
[2020-01-01] MEDS: METOPROLOL TARTRATE 25 MG TABLET NG SCH ×2 (08:07→20:15)
[2020-01-01] MEDS: DOCUSATE SODIUM 100 MG/10 ML LIQUID UDC NG SCH ×2 (08:07→20:14)
[2020-01-01] MEDS: DONEPEZIL 5 MG TABLET PO SCH (08:07)
[2020-01-01] MEDS: PANTOPRAZOLE ORAL SUSPENSION 40 MG SUSPDR.PKT NG SCH (08:09)
[2020-01-01] MEDS: INSULIN GLARGINE,HUM 300 UNITS/3 ML CARTRIDGE SQ SCH ×2 (08:10→20:37)
--- NOTE | 2020-01-01 08:30 | NUR ---
Nephrology services Dr. Hicks in the unit, full report given. See order history for new orders.
[2020-01-01] MEDS ORDERED: VANCOMYCIN IV 1,000 MG in IV DEXTROSE 5% 250 ML IV ONE (09:00)
--- NOTE | 2020-01-01 09:00 | NUR ---
Pulmonary services Dr. Hope in the unit, full report given to Dr. Hope. See order history for new orders. Dr. Hope at the bedside assessing patient.
[2020-01-01] MEDS: MORPHINE SULFATE 4 MG/1 ML DISP.SYRIN IV PRN ×2 (09:36→18:26)
[2020-01-01] MEDS: NEPRO 1000 ML NG PRN (10:00)
--- NOTE | 2020-01-01 12:21 | NUR ---
Cardiology services in the unit, full report given to Dr. Calles. see order history for new orders.
--- NOTE | 2020-01-01 13:12 | NUR ---
Clinical Pharmacy Note: Vancomycin Pharmacy to Dose Subjective: To continue vancomycin in this 69y/o male for indication of "suspected infection" per ID Objective: weight 69kg height 170cm BUN/SCr 69/1.5 wbc 15.4 (12/30) temp 98.8 1gm vanco given in ER 12/29 @2357 Random with am labs 12/30: 11.3 Giuliano with am labs today: 15.2 Assessment/Plan As renal function remains reduced will dose per level for now. Per today's random, dosed another 1gm vanco today at 0900. Next random due with am labs tomorrow. Will check and re-dose as appropriately. Will continue to follow
--- NOTE | 2020-01-01 17:30 | NUR ---
pt remains orally intubated on full vent support, pt tolerating settings well, no distress noted during shift. pt sxn'd as needed oral care provided. vent alarms audible checked and reset. bvm/mask at bedside. cont to monitor and report any changes.
--- NOTE | 2020-01-01 19:30 | NUR ---
Report received. Patient on COVID-19 isolation, orally intubated and to mechanical ventilator. Saturations above 92%. Sedated with Versed 5 mg/H via SHARI PICC line. Coughs with oral and ETT suctioning; scant beige colored secretions. NGT feeds at 20 ml/H. Tolerated well. Turned and repositioned. Flexi seal intact; with small amounts of brown stools. Assessment done. Addendum: 01/01/20 at 2105 by EMILY SCHNEIDER RN Amended: Links added. Addendum: 01/01/20 at 2110 by EMILY SCHNEIDER RN Amended: Links added.
--- NOTE | 2020-01-01 19:45 | NUR ---
Seen by Naina BERNAL Made aware of today's WBC. No new orders. Addendum: 01/01/20 at 2110 by EMILY SCHNEIDER RN Amended: Links added.
--- NOTE | 2020-01-01 19:49 | NUR ---
RECEIVED PATIENT ORALLY INTUBATED ON A SÁNCHEZ VENTILATOR WITH THE FOLLOWING SETTINGS THAT ARE CHARTED ON THE MECHANICAL VENTILATOR NOTES. ORAL CARE DONE. MDI TX GIVEN. PATIENT IS TOLERATING CURRENT VENTILATOR SETTINGS WELL WITH NO SOB NOTED. FILTERS CHANGED. NO VENT CHANGES MADE. VENTILATOR IS PLUGGED IN THE RED EMERGENCY OUTLET. VENTILATOR ALARMS CHECKED AND THEY ARE AUDIBLE. ORAL CARE DONE. SUCTIONED MODERATE AMOUNTS OF THICK SECRETIONS. AMBU BAG IS BY BEDSIDE. WILL CONTINUE TO MONITOR PATIENT.
[2020-01-01] MEDS: MIRTAZAPINE 15 MG TABLET NG SCH (20:14)
[2020-01-01] MEDS: ENOXAPARIN SODIUM 40 MG/0.4 ML DISP.SYRIN SQ SCH (20:17)
[2020-01-02] VITALS (36 sets, daily range): BP systolic 100–176; BP diastolic 47–95
[2020-01-02] MEDS: BLOOD SUGAR DIAGNOSTIC 1 EACH STRIP VI SCH ×5 (00:33→23:31)
[2020-01-02] MEDS: INSULIN REGULAR, HUMAN 300 UNIT/3 ML VIAL SQ PRN ×5 (00:34→23:32)
[2020-01-02] MEDS: MORPHINE SULFATE 4 MG/1 ML DISP.SYRIN IV PRN ×3 (00:36→07:55)
[2020-01-02] MEDS: IPRATROPIUM BROMIDE 12.9 GM INHALER INH SCH ×6 (03:43→23:03)
[2020-01-02] MEDS: ALBUTEROL SULFATE 8 GM HFA.AER.AD INH SCH ×6 (03:43→23:03)
[2020-01-02 05:21] LABS: BASOPHILS # (AUTO) 0.2 K/uL (0.0-8.0); BASOPHILS % (AUTO) 0.8 % (0.0-2.0); HEMATOCRIT 37.4 % (36.7-47.1); HEMOGLOBIN 12.1 g/dL (12.5-16.3); LYMPHOCYTES # (AUTO) 0.5 K/uL (20.0-40.0); LYMPHOCYTES % (AUTO) 2.3 % (20.5-51.5); MEAN CORPUSCULAR HEMOGLOBIN 27.5 uug (23.8-33.4); MEAN CORPUSCULAR HGB CONC 33 g/dL (32.5-36.3); MEAN CORPUSCULAR VOLUME 84.6 fL (73.0-96.2); MONOCYTES # (AUTO) 0.7 K/uL (2.0-10.0); MONOCYTES % (AUTO) 2.8 % (0.0-11.0); NEUTROPHILS # (AUTO) 22.4 K/uL (1.8-8.9); NEUTROPHILS % (AUTO) 94.1 % (38.5-71.5); PLATELET COUNT (AUTO) 177 K/uL (152-348); RED BLOOD CELL COUNT(AUTO) 4.42 MIL/uL (4.06-5.63); WHITE BLOOD COUNT (AUTO) 23.9 K/uL (3.6-10.2)
[2020-01-02 05:38] LABS: CREATININE 1.3 mg/dL (0.6-1.3); GLUCOSE 257 mg/dL (74-106); LACTATE DEHYDROGENASE 433 U/L (85-227); MAGNESIUM 2.1 mg/dL (1.8-2.4); PHOSPHOROUS 4.9 mg/dL (2.5-4.9); UREA NITROGEN, BLOOD 60 mg/dL (7-18); VANCOMYCIN,RANDOM 15.2 ug/mL (18.0-26.0)
[2020-01-02] MEDS: MIDAZOLAM HCL 50 MG in IV NORMAL SALINE 40 ML IV PRN ×2 (05:38→18:19)
[2020-01-02 05:49] LABS: CARBON DIOXIDE 31 mmol/L (21-32); CHLORIDE 107 mmol/L (98-107); POTASSIUM 4.7 mmol/L (3.5-5.1)
[2020-01-02 06:06] LABS: FERRITIN 1364 ng/mL (26-388)
[2020-01-02] MEDS: NITROGLYCERIN OINT 1 GM PACKET TP PRN (06:11)
[2020-01-02] MEDS: IV 1/2NS 1000 ML 1,000 ML IV PRN (06:13)
[2020-01-02] MEDS: Z GUARD REMEDY PASTE 57 GM TUBE TOP PRN (06:13)
--- NOTE | 2020-01-02 06:15 | NUR ---
BP 176/95 after CXR and am care. Nitro paste 1 inch top to chest wall; Morphine IV given. Addendum: 01/02/20 at 0632 by EMILY SCHNEIDER RN Amended: Links added.
--- NOTE | 2020-01-02 06:40 | NUR ---
NOTE: Patient's weight 12/27/19 is supposed to be 152 lbs not 1520. User error; cut off date for correction has passed.
--- NOTE | 2020-01-02 07:11 | NUR ---
Remains on Versed drip @ 5 mg/H. Tolerating NGT feedings at 20 ml/H. Condition unchanged. COVID-19 isolation maintained. Addendum: 01/02/20 at 0714 by EMILY SCHNEIDER RN Amended: Links added.
[2020-01-02 07:27] LABS: ABG BASE EXCESS 1.5 mmol/L; ABG HCO3 30.5 mmol/L; ABG PCO2 69.8 mmHg (35.0-45.0); ABG PH 7.259 (7.350-7.450); ABG SITE LEFT RADIAL; COHb 1.3 % (0.5-1.5); MetHb 0.4 % (0.0-1.5); O2Hb 91.5 % (94.0-97.0); VENT MODE VENT - A/C 24; VT, ABG 400 mL
[2020-01-02] MEDS: methylPREDNISolone SOD SUCC 125 MG/2 ML VIAL IV SCH ×2 (07:55→20:18)
[2020-01-02] MEDS: DOCUSATE SODIUM 100 MG/10 ML LIQUID UDC NG SCH ×2 (07:56→20:17)
[2020-01-02] MEDS: FLUCONAZOLE 100 MG TABLET GT SCH (07:56)
[2020-01-02] MEDS: METOPROLOL TARTRATE 25 MG TABLET NG SCH ×2 (07:56→20:17)
[2020-01-02] MEDS: PANTOPRAZOLE ORAL SUSPENSION 40 MG SUSPDR.PKT NG SCH (07:56)
[2020-01-02] MEDS: DONEPEZIL 5 MG TABLET PO SCH (07:56)
[2020-01-02] MEDS: INSULIN GLARGINE,HUM 300 UNITS/3 ML CARTRIDGE SQ SCH ×2 (08:15→20:52)
[2020-01-02] MEDS ORDERED: VANCOMYCIN IV 1,000 MG in IV DEXTROSE 5% 250 ML IV ONE (09:00)
--- NOTE | 2020-01-02 09:45 | NUR ---
Dr. Hope here to see pt. Full report given. New orders received.
[2020-01-02] MEDS: MEROPENEM 1 G in IV NORMAL SALINE 100 ML IV SCH ×2 (10:00→20:18)
--- NOTE | 2020-01-02 11:19 | NUR ---
Clinical Pharmacy Note: Vancomycin Pharmacy to Dose Subjective: To continue vancomycin in this 69y/o male for indication of "suspected infection" per ID Objective: weight 69kg height 170cm BUN/SCr 60/1.3 wbc 23.9 temp 98 Random with am labs 6/7: 11.3 Random with am labs 6/8: 15.2 Random with am labs 6/9: 15.2 Assessment/Plan As renal function remains reduced will dose per level for now. Per today's random, dosed another 1gm vanco today at 0900. Next random due with am labs tomorrow. Will check and re-dose as appropriately. Will continue to follow
[2020-01-02] MEDS ORDERED: NIFEdipine XL 30 MG TABSR PO SCH (14:15)
[2020-01-02] MEDS ORDERED: AMLODIPINE 5 MG TABLET PO SCH (15:00)
[2020-01-02] MEDS: AMLODIPINE 5 MG TABLET NG SCH (15:11)
--- NOTE | 2020-01-02 17:15 | NUR ---
pt remains orally intubated on full vent support, vent setting change made with RR to 28. pt tolerating settings well, no distress noted during shift. mdi tx's given as ordered. pt sxn'd as needed oral care provided. vent alarms audible checked and reset. bvm/mask at bedside. cont to monitor and report any changes.
--- NOTE | 2020-01-02 19:20 | NUR ---
Pt. received on continuous vent support, pt tolerating current settings well, MDI tx given as ordered. no distress noted at this time. suction prn. oral care provided. vent alarms audible checked and reset. ambu bag at bedside. ppe used. will continue to monitor.
--- NOTE | 2020-01-02 19:30 | NUR ---
Received patient orally intubated and to mechanical ventilator with settings: AC=28, OW=305kv, FIO2=60% and PEEP=10 cm. Saturations above 94%. On isolation for COVID-19. On Versed drip at 5 mg/H via SHARI PICC line. Opens eyes to turning. HOB elevated at all times. NGT feedings at 20 ml/H; tolerated well. No residuals. Assessment completed. Addendum: 01/02/20 at 214 by EMILY SCHNEIDER RN Amended: Links added. Addendum: 01/02/20 at 2145 by EMILY SCHNEIDER RN Amended: Links added.
--- NOTE | 2020-01-02 19:50 | NUR ---
Seen by Naina RIVAS. Addendum: 01/02/20 at 2145 by EMILY SCHNEIDER RN Amended: Links added.
[2020-01-02] MEDS: MIRTAZAPINE 15 MG TABLET NG SCH (20:17)
[2020-01-02] MEDS: ENOXAPARIN SODIUM 40 MG/0.4 ML DISP.SYRIN SQ SCH (20:18)
[2020-01-02] MEDS: ACETAMINOPHEN 650 MG/20.3 ML LIQUID UDC NG PRN (20:20)
[2020-01-03] VITALS (35 sets, daily range): BP systolic 99–164; BP diastolic 37–88
[2020-01-03] MEDS: IV NORMAL SALINE 250 ML IV PRN (01:26)
[2020-01-03] MEDS: NEPRO 1000 ML NG PRN (01:55)
[2020-01-03] MEDS: MORPHINE SULFATE 4 MG/1 ML DISP.SYRIN IV PRN ×2 (02:51→06:06)
[2020-01-03] MEDS: ALBUTEROL SULFATE 8 GM HFA.AER.AD INH SCH ×6 (03:00→22:36)
[2020-01-03] MEDS: IPRATROPIUM BROMIDE 12.9 GM INHALER INH SCH ×6 (03:00→22:36)
[2020-01-03] MEDS: MIDAZOLAM HCL 50 MG in IV NORMAL SALINE 40 ML IV PRN ×2 (04:05→16:41)
[2020-01-03] MEDS: IV 1/2NS 1000 ML 1,000 ML IV PRN (04:07)
[2020-01-03] MEDS: Z GUARD REMEDY PASTE 57 GM TUBE TOP PRN (04:08)
[2020-01-03 05:05] LABS: BASOPHILS # (AUTO) 0.1 K/uL (0.0-8.0); BASOPHILS % (AUTO) 0.6 % (0.0-2.0); HEMOGLOBIN 12.5 g/dL (12.5-16.3); LYMPHOCYTES # (AUTO) 0.6 K/uL (20.0-40.0); LYMPHOCYTES % (AUTO) 2.3 % (20.5-51.5); MEAN CORPUSCULAR HEMOGLOBIN 27.3 uug (23.8-33.4); MEAN CORPUSCULAR HGB CONC 32 g/dL (32.5-36.3); MEAN CORPUSCULAR VOLUME 84.7 fL (73.0-96.2); MONOCYTES # (AUTO) 0.8 K/uL (2.0-10.0); MONOCYTES % (AUTO) 3.4 % (0.0-11.0); NEUTROPHILS # (AUTO) 23.1 K/uL (1.8-8.9); NEUTROPHILS % (AUTO) 93.7 % (38.5-71.5); PLATELET COUNT (AUTO) 211 K/uL (152-348); WHITE BLOOD COUNT (AUTO) 24.7 K/uL (3.6-10.2)
[2020-01-03 05:48] LABS: CARBON DIOXIDE 33 mmol/L (21-32); CHLORIDE 110 mmol/L (98-107); CREATININE 1.4 mg/dL (0.6-1.3); GLUCOSE 235 mg/dL (74-106); MAGNESIUM 2.4 mg/dL (1.8-2.4); PHOSPHOROUS 4.6 mg/dL (2.5-4.9); POTASSIUM 4.7 mmol/L (3.5-5.1)
[2020-01-03 05:54] LABS: UREA NITROGEN, BLOOD 59 mg/dL (7-18)
[2020-01-03] MEDS: BLOOD SUGAR DIAGNOSTIC 1 EACH STRIP VI SCH ×4 (06:03→23:36)
[2020-01-03] MEDS: INSULIN REGULAR, HUMAN 300 UNIT/3 ML VIAL SQ PRN ×4 (06:05→23:39)
--- NOTE | 2020-01-03 06:26 | NUR ---
Status unchanged. Opens eyes at times during turning and repositioning. Remains on Versed drip at 5 mg/H. Morphine IV given PRN. O2 saturations above 94% on FIO2 60%. Tolerating NGT feedings @ 20 ml/H continuously; no residuals. Urine [id number] the entire shift. COVID-19 isolation maintained. Addendum: 01/03/20 at 0629 by EMILY SCHNEIDER RN Amended: Links added.
[2020-01-03] MEDS ORDERED: VANCOMYCIN IV 1,000 MG in IV DEXTROSE 5% 250 ML IV ONE (08:00)
[2020-01-03] MEDS: FLUCONAZOLE 100 MG TABLET GT SCH (08:31)
[2020-01-03] MEDS: PANTOPRAZOLE ORAL SUSPENSION 40 MG SUSPDR.PKT NG SCH (08:31)
[2020-01-03] MEDS: MEROPENEM 1 G in IV NORMAL SALINE 100 ML IV SCH (08:31)
[2020-01-03] MEDS: DONEPEZIL 5 MG TABLET PO SCH (08:31)
[2020-01-03] MEDS: AMLODIPINE 5 MG TABLET NG SCH (08:32)
[2020-01-03] MEDS: METOPROLOL TARTRATE 25 MG TABLET NG SCH ×2 (08:32→20:28)
[2020-01-03] MEDS: methylPREDNISolone SOD SUCC 125 MG/2 ML VIAL IV SCH ×2 (08:33→20:28)
[2020-01-03] MEDS: DOCUSATE SODIUM 100 MG/10 ML LIQUID UDC NG SCH ×2 (08:33→20:27)
[2020-01-03 08:47] LABS: ABG BASE EXCESS 6.5 mmol/L; ABG PCO2 69.6 mmHg (35.0-45.0); ABG PH 7.319 (7.350-7.450); ABG PO2 77.7 mmHg (75.0-100.0); ABG SITE RIGHT RADIAL; ABG TOTAL HEMOGLOBIN 13.4 G/dL (13.5-18.0); MetHb 0.5 % (0.0-1.5); O2Hb 92.9 % (94.0-97.0); VENT MODE VENT - A/C; VT, ABG 400 mL
--- NOTE | 2020-01-03 08:49 | NUR ---
Clinical Pharmacy Note: Vancomycin Pharmacy to Dose Subjective: To continue vancomycin in this 69y/o male for indication of "suspected infection" per ID Objective: weight 69kg height 170cm BUN/SCr 59/1.4 wbc 24.7 temp 97.9 Random with am labs 6/7: 11.3 Random with am labs 6/8: 15.2 Random with am labs 6/9: 15.2 Random with am labs 6/10: 18 Assessment/Plan As renal function remains reduced will dose per level for now. Per today's random, dosed another 1gm vanco today at 0800. Next random due with am labs tomorrow. Will check and re-dose as appropriately. Will continue to follow
[2020-01-03] MEDS: INSULIN GLARGINE,HUM 300 UNITS/3 ML CARTRIDGE SQ SCH ×2 (09:10→20:43)
[2020-01-03] MEDS: ACETAMINOPHEN 650 MG/20.3 ML LIQUID UDC NG PRN (12:51)
[2020-01-03] MEDS ORDERED: GLUCAGON,HUMAN RECOMBINANT 1 MG VIAL IVP ONE ×2 (17:30→22:00)
--- NOTE | 2020-01-03 20:00 | NUR ---
RECEIVED PT ORALLY INTUBATED TO VENT W/ SETTINGS OF AC-28, TV-400, FIO2-60%, PEEP-+10 ,W/ O2 SAT OF 95%.NGT ON L NARES CHECKED FOR PLACEMENT & CHECKED FOR RESIDUAL 5CC NOTED. TUBE FDG OF NEPHRO @ 20CC/HR. IVF 1/2NS @ 30CC/HR ON JHOANA PICC LINE. VERSED DRIP @ 5MG/HR. NS TKO ON SHARI MIDLINE. SUCTIONED ORALLY & VIA ETT W/ SMALL AMT OF TANNISH THICK MUCOUS. REPOSITIONED W/ HOB ELEVATED.
[2020-01-03] MEDS: MIRTAZAPINE 15 MG TABLET NG SCH (20:29)
[2020-01-03] MEDS: ENOXAPARIN SODIUM 40 MG/0.4 ML DISP.SYRIN SQ SCH (20:30)
[2020-01-03] MEDS: PIPERACILLIN/TAZOBACTAM/D5W 3.375 G in PREMIXED 1 EACH IV SCH (21:59)
[2020-01-03] MEDS ORDERED: PIPERACILLIN SODIUM/TAZOBACTAM 3.375 G in IV DEXTROSE 5% 50 ML IV SCH (22:00)
--- NOTE | 2020-01-03 22:00 | NUR ---
HS CARE DONE. REPOSITIONED ON HIS OPPOSITE SIDE W/ HOB ELEVATED.
[2020-01-04] VITALS (29 sets, daily range): BP systolic 106–157; BP diastolic 44–87
[2020-01-04] MEDS: ALBUTEROL SULFATE 8 GM HFA.AER.AD INH SCH ×6 (02:34→22:35)
[2020-01-04] MEDS: IPRATROPIUM BROMIDE 12.9 GM INHALER INH SCH ×6 (02:34→22:35)
--- NOTE | 2020-01-04 04:00 | NUR ---
AM CARE DONE. ORAL CARE DONE. NGT RESIDUAL NONE NOTED. REPOSITIONED W/ HOB ELEVATED.
--- NOTE | 2020-01-04 05:00 | NUR ---
REPOSITIONED ON HIS BACK FOR CXR.
[2020-01-04] MEDS: MIDAZOLAM HCL 50 MG in IV NORMAL SALINE 40 ML IV PRN ×2 (05:16→16:45)
[2020-01-04] MEDS: BLOOD SUGAR DIAGNOSTIC 1 EACH STRIP VI SCH ×4 (05:26→23:47)
[2020-01-04] MEDS: INSULIN REGULAR, HUMAN 300 UNIT/3 ML VIAL SQ PRN ×3 (05:27→17:55)
[2020-01-04] MEDS: IV NORMAL SALINE 250 ML IV PRN (05:37)
[2020-01-04] MEDS: PIPERACILLIN/TAZOBACTAM/D5W 3.375 G in PREMIXED 1 EACH IV SCH ×3 (05:52→21:36)
[2020-01-04 08:05] LABS: ABG BASE EXCESS 8.3 mmol/L; ABG HCO3 36.3 mmol/L; ABG PCO2 66.7 mmHg (35.0-45.0); ABG PH 7.354 (7.350-7.450); ABG PO2 77.9 mmHg (75.0-100.0); ABG SITE LEFT RADIAL; ABG TOTAL HEMOGLOBIN 13.7 G/dL (13.5-18.0); COHb 1.5 % (0.5-1.5); MetHb 0.5 % (0.0-1.5); O2Hb 93.5 % (94.0-97.0); VENT MODE VENT - A/C; VT, ABG 400 mL
[2020-01-04] MEDS: methylPREDNISolone SOD SUCC 125 MG/2 ML VIAL IV SCH ×2 (08:42→21:05)
[2020-01-04] MEDS: METOPROLOL TARTRATE 25 MG TABLET NG SCH ×2 (08:42→21:06)
[2020-01-04] MEDS: FLUCONAZOLE 100 MG TABLET GT SCH (08:42)
[2020-01-04] MEDS: AMLODIPINE 5 MG TABLET NG SCH (08:43)
[2020-01-04] MEDS: DONEPEZIL 5 MG TABLET PO SCH (08:43)
[2020-01-04] MEDS: PANTOPRAZOLE ORAL SUSPENSION 40 MG SUSPDR.PKT NG SCH (08:43)
[2020-01-04] MEDS: INSULIN GLARGINE,HUM 300 UNITS/3 ML CARTRIDGE SQ SCH ×2 (08:46→21:21)
[2020-01-04] MEDS: DOCUSATE SODIUM 100 MG/10 ML LIQUID UDC NG SCH ×2 (08:47→21:06)
[2020-01-04] MEDS: MORPHINE SULFATE 4 MG/1 ML DISP.SYRIN IV PRN ×2 (09:11→22:36)
--- NOTE | 2020-01-04 10:30 | NUR ---
Pulmonary services, Dr. Hope in the unit to see and examine patient, report given see order hx.
--- NOTE | 2020-01-04 12:30 | NUR ---
Nephrology services, Dr. Jamison Cintron in the unit to see and examine pt. full report given orders to continue with care plan received.
[2020-01-04] MEDS: NEPRO 1000 ML NG PRN (15:00)
--- NOTE | 2020-01-04 16:20 | NUR ---
Cardiology services, Dr. Marli Norris in the unit to see and examine pt. report given; orders to continue with care plan received.
[2020-01-04] MEDS: IV 1/2NS 1000 ML 1,000 ML IV PRN (16:59)
--- NOTE | 2020-01-04 19:30 | NUR ---
Report received. Patient on COVID 19 isolation. Orally intubated to mechanical ventilator and on continuous Versed drip for sedation. Saturations 94-95%. Assessment completed and documented. Addendum: 01/05/20 at 0118 by EMILY SCHNEIDER RN Amended: Links added. Addendum: 01/05/20 at 0120 by EMILY SCHNEIDER RN Amended: Links added. Addendum: 01/05/20 at 0121 by EMILY TAECHARATKIJ RN Amended: Links added. Addendum: 01/05/20 at 0121 by EMILY SCHNEIDER RN Amended: Links added. Addendum: 01/05/20 at 0121 by EMILY SCHNEIDER RN Amended: Links added. Addendum: 01/05/20 at 0121 by EMILY SCHNEIDER RN Amended: Links added. Addendum: 01/05/20 at 0121 by EMILY SCHNEIDER RN Amended: Links added. Addendum: 01/05/20 at 0122 by EMILY SCHNEIDER RN Amended: Links added.
--- NOTE | 2020-01-04 20:05 | NUR ---
Patient received on Crowley settings AC 28, VT 400, PEEP+10 and FIO2-60%. 7.5 ETT is patent and secure at approx. 25cm at the lip. Pt to be monitored throughout the shift and PRN SX. Pt is in no resp. distress and appears to be tolerating ventilator settings well. Crowley alarms have been checked and remain audible.
[2020-01-04] MEDS: MIRTAZAPINE 15 MG TABLET NG SCH (21:07)
[2020-01-04] MEDS: ENOXAPARIN SODIUM 40 MG/0.4 ML DISP.SYRIN SQ SCH (21:22)
--- NOTE | 2020-01-04 22:35 | NUR ---
Tolerating NGT feedings well. Medicated with Morphine IV for generalized discomfort. Addendum: 01/05/20 at 0120 by EMILY SCHNEIDER RN Amended: Links added. Addendum: 01/05/20 at 0121 by EMILY SCHNEIDER RN Amended: Links added. Addendum: 01/05/20 at 0121 by EMILY SCHNEIDER RN Amended: Links added. Addendum: 01/05/20 at 0121 by EMILY SCHNEIDER RN Amended: Links added. Addendum: 01/05/20 at 0121 by EMILY SCHNEIDER RN Amended: Links added. Addendum: 01/05/20 at 0121 by EMILY SCHNEIDER RN Amended: Links added. Addendum: 01/05/20 at 0122 by EIMLY SCHNEIDER RN Amended: Links added.
[2020-01-05] VITALS (40 sets, daily range): BP systolic 104–159; BP diastolic 52–93
[2020-01-05] MEDS: IPRATROPIUM BROMIDE 12.9 GM INHALER INH SCH ×6 (02:35→22:41)
[2020-01-05] MEDS: ALBUTEROL SULFATE 8 GM HFA.AER.AD INH SCH ×6 (02:36→22:41)
[2020-01-05] MEDS: IV NORMAL SALINE 250 ML IV PRN (04:03)
[2020-01-05 04:58] LABS: BASOPHILS # (AUTO) 0.2 K/uL (0.0-8.0); BASOPHILS % (AUTO) 0.9 % (0.0-2.0); HEMOGLOBIN 13.1 g/dL (12.5-16.3); LYMPHOCYTES # (AUTO) 0.4 K/uL (20.0-40.0); LYMPHOCYTES % (AUTO) 1.6 % (20.5-51.5); MEAN CORPUSCULAR HEMOGLOBIN 27.4 uug (23.8-33.4); MEAN CORPUSCULAR HGB CONC 32 g/dL (32.5-36.3); MEAN CORPUSCULAR VOLUME 85.6 fL (73.0-96.2); MONOCYTES # (AUTO) 0.5 K/uL (2.0-10.0); MONOCYTES % (AUTO) 2.2 % (0.0-11.0); NEUTROPHILS # (AUTO) 24.1 K/uL (1.8-8.9); NEUTROPHILS % (AUTO) 95.3 % (38.5-71.5); PLATELET COUNT (AUTO) 284 K/uL (152-348); RED BLOOD CELL COUNT(AUTO) 4.79 MIL/uL (4.06-5.63); WHITE BLOOD COUNT (AUTO) 25.3 K/uL (3.6-10.2)
[2020-01-05] MEDS: MIDAZOLAM HCL 50 MG in IV NORMAL SALINE 40 ML IV PRN ×2 (04:59→19:13)
[2020-01-05] MEDS: PIPERACILLIN/TAZOBACTAM/D5W 3.375 G in PREMIXED 1 EACH IV SCH ×3 (05:16→21:04)
[2020-01-05] MEDS: BLOOD SUGAR DIAGNOSTIC 1 EACH STRIP VI SCH ×3 (05:17→17:53)
[2020-01-05 05:28] LABS: CREATININE 1.2 mg/dL (0.6-1.3); MAGNESIUM 2.4 mg/dL (1.8-2.4); PHOSPHOROUS 4.9 mg/dL (2.5-4.9); POTASSIUM 5.3 mmol/L (3.5-5.1)
[2020-01-05] MEDS: MORPHINE SULFATE 4 MG/1 ML DISP.SYRIN IV PRN (06:24)
--- NOTE | 2020-01-05 07:29 | NUR ---
Condition unchanged. Remains on Versed drip 5 mg/H. Tolerating NGT feedings well. COVID 19 isolation maintained. Addendum: 01/05/20 at 0730 by EMILY SCHNEIDER RN Amended: Links added.
[2020-01-05 08:47] LABS: ABG HCO3 35.8 mmol/L; ABG PCO2 64.2 mmHg (35.0-45.0); ABG PH 7.364 (7.350-7.450); ABG PO2 71.2 mmHg (75.0-100.0); ABG SITE RIGHT RADIAL; ABG TOTAL HEMOGLOBIN 13.9 G/dL (13.5-18.0); COHb 1.6 % (0.5-1.5); MetHb 0.4 % (0.0-1.5); O2Hb 92.7 % (94.0-97.0); VENT MODE VENT - A/C; VT, ABG 400 mL
[2020-01-05] MEDS: DOCUSATE SODIUM 100 MG/10 ML LIQUID UDC NG SCH ×2 (09:00→21:00)
[2020-01-05] MEDS: DONEPEZIL 5 MG TABLET PO SCH (09:11)
[2020-01-05] MEDS: FLUCONAZOLE 100 MG TABLET GT SCH (09:11)
[2020-01-05] MEDS: METOPROLOL TARTRATE 25 MG TABLET NG SCH ×2 (09:12→21:02)
[2020-01-05] MEDS: PANTOPRAZOLE ORAL SUSPENSION 40 MG SUSPDR.PKT NG SCH (09:12)
[2020-01-05] MEDS: AMLODIPINE 5 MG TABLET NG SCH (09:12)
[2020-01-05] MEDS: methylPREDNISolone SOD SUCC 125 MG/2 ML VIAL IV SCH ×2 (09:14→20:59)
[2020-01-05] MEDS: INSULIN GLARGINE,HUM 300 UNITS/3 ML CARTRIDGE SQ SCH ×2 (09:18→21:05)
--- NOTE | 2020-01-05 10:00 | NUR ---
DOCTOR HENNA IN THE UNIT TO SEE PATIENT.
[2020-01-05] MEDS ORDERED: ENOXAPARIN SODIUM 60 MG/0.6 ML DISP.SYRIN SQ SCH (10:45)
--- NOTE | 2020-01-05 11:00 | NUR ---
SON NAT MADE CONTACT TODAY. STATES THAT LIVES IN [place] AND CAN BE CONTACTED VIA EMAIL OR PHONE. EMAIL: OR [phone].
[2020-01-05] MEDS: INSULIN REGULAR, HUMAN 300 UNIT/3 ML VIAL SQ PRN ×2 (12:33→18:18)
--- NOTE | 2020-01-05 15:50 | NUR ---
Doctor Hope in the unit to see patient at this time. plans for trach run to approximately 30 days for covid. reswabed for covid and sent to lab
[2020-01-05] MEDS: MIRTAZAPINE 15 MG TABLET NG SCH (21:01)
[2020-01-05] MEDS: ENOXAPARIN SODIUM 60 MG/0.6 ML DISP.SYRIN SQ SCH (21:06)
[2020-01-06] VITALS (24 sets, daily range): BP systolic 102–158; BP diastolic 54–93
[2020-01-06] MEDS: Z GUARD REMEDY PASTE 57 GM TUBE TOP PRN (00:01)
[2020-01-06] MEDS: BLOOD SUGAR DIAGNOSTIC 1 EACH STRIP VI SCH ×4 (00:58→17:18)
[2020-01-06] MEDS: INSULIN REGULAR, HUMAN 300 UNIT/3 ML VIAL SQ PRN ×3 (00:59→12:16)
[2020-01-06] MEDS: ALBUTEROL SULFATE 8 GM HFA.AER.AD INH SCH ×6 (02:41→23:15)
[2020-01-06] MEDS: IPRATROPIUM BROMIDE 12.9 GM INHALER INH SCH ×6 (02:41→23:15)
[2020-01-06] MEDS: IV 1/2NS 1000 ML 1,000 ML IV PRN (02:45)
[2020-01-06] MEDS: PIPERACILLIN/TAZOBACTAM/D5W 3.375 G in PREMIXED 1 EACH IV SCH ×3 (05:33→21:11)
[2020-01-06] MEDS: IV NORMAL SALINE 250 ML IV PRN (05:38)
[2020-01-06 05:45] LABS: BASOPHILS # (AUTO) 0.1 K/uL (0.0-8.0); BASOPHILS % (AUTO) 0.5 % (0.0-2.0); EOSINOPHILS % (AUTO) 0.1 % (0.0-7.0); HEMOGLOBIN 12.8 g/dL (12.5-16.3); LYMPHOCYTES # (AUTO) 0.5 K/uL (20.0-40.0); MEAN CORPUSCULAR HEMOGLOBIN 26.8 uug (23.8-33.4); MEAN CORPUSCULAR HGB CONC 31 g/dL (32.5-36.3); MONOCYTES # (AUTO) 0.4 K/uL (2.0-10.0); MONOCYTES % (AUTO) 1.7 % (0.0-11.0); NEUTROPHILS # (AUTO) 21.8 K/uL (1.8-8.9); NEUTROPHILS % (AUTO) 95.7 % (38.5-71.5); PLATELET COUNT (AUTO) 305 K/uL (152-348); RED BLOOD CELL COUNT(AUTO) 4.77 MIL/uL (4.06-5.63); WHITE BLOOD COUNT (AUTO) 22.8 K/uL (3.6-10.2)
[2020-01-06 06:32] LABS: CREATININE 1.3 mg/dL (0.6-1.3); MAGNESIUM 2.3 mg/dL (1.8-2.4); PHOSPHOROUS 4.1 mg/dL (2.5-4.9); POTASSIUM 5.3 mmol/L (3.5-5.1)
[2020-01-06] MEDS: PANTOPRAZOLE ORAL SUSPENSION 40 MG SUSPDR.PKT NG SCH (07:52)
[2020-01-06] MEDS: METOPROLOL TARTRATE 25 MG TABLET NG SCH ×2 (07:52→20:12)
[2020-01-06] MEDS: methylPREDNISolone SOD SUCC 125 MG/2 ML VIAL IV SCH ×2 (07:52→20:11)
[2020-01-06] MEDS: DONEPEZIL 5 MG TABLET PO SCH (07:52)
[2020-01-06] MEDS: DOCUSATE SODIUM 100 MG/10 ML LIQUID UDC NG SCH ×2 (07:52→19:20)
[2020-01-06] MEDS: MORPHINE SULFATE 4 MG/1 ML DISP.SYRIN IV PRN (07:53)
[2020-01-06] MEDS: AMLODIPINE 5 MG TABLET NG SCH (07:53)
[2020-01-06] MEDS: ENOXAPARIN SODIUM 60 MG/0.6 ML DISP.SYRIN SQ SCH ×2 (07:58→19:18)
[2020-01-06] MEDS: INSULIN GLARGINE,HUM 300 UNITS/3 ML CARTRIDGE SQ SCH ×2 (07:59→21:15)
--- NOTE | 2020-01-06 07:59 | NUR ---
Patient received on Crowley settings AC 28, VT 400, PEEP+10 and FIO2-60%. 7.5 ETT is patent and secure at approx. 25cm at the lip. SX PRN. Pt is in no resp. distress and appears to be tolerating ventilator settings well. Tx given as order. Vent alarms have been checked and remain audible.
[2020-01-06 08:13] LABS: ABG BASE EXCESS 9.5 mmol/L; ABG HCO3 36.2 mmol/L; ABG PCO2 58.5 mmHg (35.0-45.0); ABG SITE RIGHT RADIAL; ABG TOTAL HEMOGLOBIN 13.6 G/dL (13.5-18.0); COHb 1.2 % (0.5-1.5); MetHb 0.3 % (0.0-1.5); O2Hb 94.9 % (94.0-97.0); VENT MODE VENT - A/C; VT, ABG 400 mL
[2020-01-06] MEDS: MIDAZOLAM HCL 50 MG in IV NORMAL SALINE 40 ML IV PRN ×2 (08:13→21:11)
[2020-01-06] MEDS: METOLAZONE 2.5 MG TABLET NG SCH (08:29)
--- NOTE | 2020-01-06 11:26 | NUR ---
Dr. Zamudio here to see pt. Full report given. New orders received.
[2020-01-06] MEDS: MIRTAZAPINE 15 MG TABLET NG SCH (20:12)
--- NOTE | 2020-01-06 20:36 | NUR ---
PT received in stable respiratory condition on Crowley vent with settings: AC 28, Vt 400, +10, FiO2 60%. 7.5 ETT, patent and secured. 25cm at lip line. Suction PRN. No respiratory distress noted, tolerates vent settings well. Tx given as ordered. Alarms on and audible. Will continue to monitor.
[2020-01-07] VITALS (24 sets, daily range): BP systolic 90–141; BP diastolic 50–83
[2020-01-07] MEDS: Z GUARD REMEDY PASTE 57 GM TUBE TOP PRN (00:01)
[2020-01-07] MEDS: BLOOD SUGAR DIAGNOSTIC 1 EACH STRIP VI SCH ×4 (00:52→17:51)
[2020-01-07] MEDS: IPRATROPIUM BROMIDE 12.9 GM INHALER INH SCH ×6 (03:38→22:30)
[2020-01-07] MEDS: ALBUTEROL SULFATE 8 GM HFA.AER.AD INH SCH ×6 (03:38→22:30)
[2020-01-07] MEDS: NEPRO 1000 ML NG PRN (04:39)
[2020-01-07] MEDS: IV NORMAL SALINE 250 ML IV PRN (04:43)
[2020-01-07] MEDS: IV 1/2NS 1000 ML 1,000 ML IV PRN (04:47)
[2020-01-07] MEDS: PIPERACILLIN/TAZOBACTAM/D5W 3.375 G in PREMIXED 1 EACH IV SCH (05:56)
[2020-01-07] MEDS: INSULIN REGULAR, HUMAN 300 UNIT/3 ML VIAL SQ PRN ×2 (06:09→12:03)
[2020-01-07 06:10] LABS: BASOPHILS % (AUTO) 0.1 % (0.0-2.0); HEMATOCRIT 38.1 % (36.7-47.1); HEMOGLOBIN 12.1 g/dL (12.5-16.3); LYMPHOCYTES # (AUTO) 0.5 K/uL (20.0-40.0); LYMPHOCYTES % (AUTO) 2.6 % (20.5-51.5); MEAN CORPUSCULAR HEMOGLOBIN 27.3 uug (23.8-33.4); MEAN CORPUSCULAR HGB CONC 32 g/dL (32.5-36.3); MEAN CORPUSCULAR VOLUME 85.7 fL (73.0-96.2); MONOCYTES # (AUTO) 0.6 K/uL (2.0-10.0); MONOCYTES % (AUTO) 3.2 % (0.0-11.0); NEUTROPHILS # (AUTO) 18.2 K/uL (1.8-8.9); NEUTROPHILS % (AUTO) 94.1 % (38.5-71.5); PLATELET COUNT (AUTO) 269 K/uL (152-348); RED BLOOD CELL COUNT(AUTO) 4.44 MIL/uL (4.06-5.63); WHITE BLOOD COUNT (AUTO) 19.3 K/uL (3.6-10.2)
[2020-01-07] MEDS: MIDAZOLAM HCL 50 MG in IV NORMAL SALINE 40 ML IV PRN ×2 (06:21→17:24)
[2020-01-07 06:30] LABS: CREATININE 1.2 mg/dL (0.6-1.3); MAGNESIUM 2.2 mg/dL (1.8-2.4); PHOSPHOROUS 4.1 mg/dL (2.5-4.9); POTASSIUM 4.8 mmol/L (3.5-5.1)
--- NOTE | 2020-01-07 07:30 | NUR ---
Pt received on continuous mechanical ventilation via 7.5 ETT secured at 25cm lip line. Pt is on Crowley vent with ordered settings of A/C-28, VT-400, PEEP+10, FIO2-60% . ETT secured with AnchorFast device. ETT moved periodically. MDI treatments given as ordered, 4 Puffs with Albuterol and Atrovent. Treatments tolerated well, with no adverse reactions noted. Suctioned bloody oral secretions. HME changed. Vent alarm parameters checked, on and audible. Bag/valve/mask at bedside. Vent plugged into red emergency outlet. Will continue to monitor.
[2020-01-07] MEDS: DOCUSATE SODIUM 100 MG/10 ML LIQUID UDC NG SCH ×2 (07:52→19:37)
[2020-01-07] MEDS: PANTOPRAZOLE ORAL SUSPENSION 40 MG SUSPDR.PKT NG SCH (07:52)
[2020-01-07] MEDS: methylPREDNISolone SOD SUCC 125 MG/2 ML VIAL IV SCH ×2 (07:53→20:13)
[2020-01-07] MEDS: ENOXAPARIN SODIUM 60 MG/0.6 ML DISP.SYRIN SQ SCH ×2 (07:53→19:37)
[2020-01-07] MEDS: DONEPEZIL 5 MG TABLET PO SCH (07:53)
[2020-01-07] MEDS: AMLODIPINE 5 MG TABLET NG SCH (07:53)
[2020-01-07] MEDS: METOPROLOL TARTRATE 25 MG TABLET NG SCH ×2 (07:53→20:14)
[2020-01-07] MEDS: METOLAZONE 2.5 MG TABLET NG SCH (07:55)
[2020-01-07] MEDS: INSULIN GLARGINE,HUM 300 UNITS/3 ML CARTRIDGE SQ SCH ×2 (08:02→20:12)
[2020-01-07] MEDS: MORPHINE SULFATE 4 MG/1 ML DISP.SYRIN IV PRN (08:03)
[2020-01-07 08:55] LABS: ABG BASE EXCESS 8.7 mmol/L; ABG HCO3 37.2 mmol/L; ABG PCO2 68.8 mmHg (35.0-45.0); ABG PH 7.351 (7.350-7.450); ABG PO2 85.2 mmHg (75.0-100.0); ABG SITE LEFT RADIAL; ABG TOTAL HEMOGLOBIN 14.7 G/dL (13.5-18.0); COHb 1.5 % (0.5-1.5); MetHb 0.4 % (0.0-1.5); O2Hb 94.2 % (94.0-97.0); VENT MODE VENT - A/C; VT, ABG 400 mL
--- NOTE | 2020-01-07 11:11 | NUR ---
Dr. Zamudio here to see pt. Full report given. New orders received. No new vent changes.
--- NOTE | 2020-01-07 11:31 | NUR ---
Spoke with Dr. Navarro on the telephone. made aware that son from [place] wanted to talk to him. No new orders received.
--- NOTE | 2020-01-07 19:38 | NUR ---
Holding: Lovenox / oral bleeding. Holding: Colace / diarrhea.
[2020-01-07] MEDS: MIRTAZAPINE 15 MG TABLET NG SCH (20:14)
--- NOTE | 2020-01-07 23:09 | NUR ---
Dr Neal notified: Lovenox held / copious oral bleeding.
[2020-01-08] VITALS (32 sets, daily range): BP systolic 92–153; BP diastolic 55–92
[2020-01-08] MEDS: BLOOD SUGAR DIAGNOSTIC 1 EACH STRIP VI SCH ×4 (00:37→12:39)
[2020-01-08] MEDS: IPRATROPIUM BROMIDE 12.9 GM INHALER INH SCH ×3 (02:37→11:36)
[2020-01-08] MEDS: ALBUTEROL SULFATE 8 GM HFA.AER.AD INH SCH ×3 (02:37→11:36)
[2020-01-08] MEDS: IV NORMAL SALINE 250 ML IV PRN (04:04)
[2020-01-08] MEDS: IV 1/2NS 1000 ML 1,000 ML IV PRN (04:04)
[2020-01-08 05:10] LABS: BASOPHILS # (AUTO) 0.2 K/uL (0.0-8.0); BASOPHILS % (AUTO) 1.3 % (0.0-2.0); HEMATOCRIT 38.3 % (36.7-47.1); HEMOGLOBIN 12.5 g/dL (12.5-16.3); LYMPHOCYTES # (AUTO) 0.7 K/uL (20.0-40.0); LYMPHOCYTES % (AUTO) 3.7 % (20.5-51.5); MEAN CORPUSCULAR HEMOGLOBIN 27.8 uug (23.8-33.4); MEAN CORPUSCULAR HGB CONC 33 g/dL (32.5-36.3); MEAN CORPUSCULAR VOLUME 85.2 fL (73.0-96.2); MONOCYTES # (AUTO) 0.8 K/uL (2.0-10.0); NEUTROPHILS # (AUTO) 17.7 K/uL (1.8-8.9); PLATELET COUNT (AUTO) 269 K/uL (152-348); WHITE BLOOD COUNT (AUTO) 19.4 K/uL (3.6-10.2)
[2020-01-08 05:24] LABS: CREATININE 1.2 mg/dL (0.6-1.3); MAGNESIUM 2.2 mg/dL (1.8-2.4); PHOSPHOROUS 3.8 mg/dL (2.5-4.9); POTASSIUM 4.9 mmol/L (3.5-5.1)
[2020-01-08] MEDS: MIDAZOLAM HCL 50 MG in IV NORMAL SALINE 40 ML IV PRN (07:29)
[2020-01-08] MEDS: methylPREDNISolone SOD SUCC 125 MG/2 ML VIAL IV SCH (08:11)
[2020-01-08] MEDS: DOCUSATE SODIUM 100 MG/10 ML LIQUID UDC NG SCH (08:12)
[2020-01-08] MEDS: METOPROLOL TARTRATE 25 MG TABLET NG SCH (08:13)
[2020-01-08] MEDS: AMLODIPINE 5 MG TABLET NG SCH (08:13)
[2020-01-08] MEDS: PANTOPRAZOLE ORAL SUSPENSION 40 MG SUSPDR.PKT NG SCH (08:14)
[2020-01-08] MEDS: DONEPEZIL 5 MG TABLET PO SCH (08:14)
[2020-01-08] MEDS: METOLAZONE 2.5 MG TABLET NG SCH (08:14)
[2020-01-08] MEDS: ENOXAPARIN SODIUM 60 MG/0.6 ML DISP.SYRIN SQ SCH (08:15)
[2020-01-08] MEDS: INSULIN GLARGINE,HUM 300 UNITS/3 ML CARTRIDGE SQ SCH (08:17)
[2020-01-08 08:35] LABS: ABG HCO3 38.2 mmol/L; ABG PCO2 61.5 mmHg (35.0-45.0); ABG PH 7.411 (7.350-7.450); ABG PO2 64.9 mmHg (75.0-100.0); ABG SITE RIGHT RADIAL; ABG TOTAL HEMOGLOBIN 13.9 G/dL (13.5-18.0); COHb 1.5 % (0.5-1.5); MetHb 0.3 % (0.0-1.5); O2Hb 90.7 % (94.0-97.0); VENT MODE VENT - A/C; VT, ABG 400 mL
--- NOTE | 2020-01-08 09:00 | NUR ---
Lovenox held due to oral bleeding.
[2020-01-08] MEDS: NEPRO 1000 ML NG PRN (10:39)
--- NOTE | 2020-01-08 11:28 | NUR ---
Cardiology services Dr. lou in the unit, full report given. See order history for new orders.
--- NOTE | 2020-01-08 12:01 | NUR ---
Nephrology services Dr. Navarro in the unit, full report given. See order history for new orders.
[2020-01-08] MEDS: INSULIN REGULAR, HUMAN 300 UNIT/3 ML VIAL SQ PRN (12:24)
--- NOTE | 2020-01-08 14:12 | NUR ---
Contacted pts son Ramsey, son agreed to place patient on comfort care. Pt's son agreed to make patient DNR/DNI.
--- NOTE | 2020-01-08 15:25 | NUR ---
Dr. Navarro called and ordered patient to be on comfort measures. Dr. Hope notified. Orders for terminal extubation.
--- NOTE | 2020-01-08 15:27 | NUR ---
Contacted [facility]
[2020-01-08] MEDS: MORPHINE SULFATE PF IV DRIP 100 MG in IV DEXTROSE 5% 96 ML IV PRN (16:26)
--- NOTE | 2020-01-08 17:04 | NUR ---
Noted Rx for comfort care. TF discontinued. Will remain available as needed. Addendum: 01/08/20 at [address] Amended: Links added.
--- NOTE | 2020-01-08 18:10 | NUR ---
Patient terminally extubated,placed on nonrebreather for comfort.
--- NOTE | 2020-01-08 18:10 | NUR ---
Extubated pt at this time and placed on NRB with 15L. Nurse aware.
--- NOTE | 2020-01-08 19:15 | NUR ---
received patient sedated on morphine drip at 6 mg , on 100 % nrb , no response even to deep pain
[2020-01-08] MEDS ORDERED: methylPREDNISolone SOD SUCC 125 MG/2 ML VIAL IV SCH (21:00)
--- NOTE | 2020-01-08 22:37 | NUR ---
PATIENT IS ON MORPHINE DRIP , BEING TITRATED ACCORDING TO PATIENT'S NEEDS Addendum: 01/08/20 at 2237 by MASON CARPENTER RN Amended: Links added.
--- NOTE | 2020-01-08 22:38 | NUR ---
PATIENT IS CURRENTRLY ON 100 % NRB , TOLERATING WELL Addendum: 01/08/20 at 2238 by MASON CARPENTER RN Amended: Links added.
[2020-01-08] MEDS: LORAZEPAM 2 MG/1 ML VIAL IV PRN (23:17)
[2020-01-09] VITALS (13 sets, daily range): BP systolic 38–173; BP diastolic 25–96
--- NOTE | 2020-01-09 00:18 | NUR ---
SPOKE TO THE SON FROM [place] , GIVEN AN UPDATE ON PATIENT'S STATUS
[2020-01-09] MEDS: MORPHINE SULFATE PF IV DRIP 100 MG in IV DEXTROSE 5% 96 ML IV PRN ×3 (01:58→17:24)
[2020-01-09] MEDS: LORAZEPAM 2 MG/1 ML VIAL IV PRN (02:03)
--- NOTE | 2020-01-09 06:00 | NUR ---
morphine drip on 15 mg , patient is obtunded , still respond to very slight to deep pain , deep breathing on 100 % nrb ,
--- NOTE | 2020-01-09 08:45 | NUR ---
A call from pt's son he was updated on his dad's condition.
--- NOTE | 2020-01-09 10:51 | NUR ---
A call pt's daughter requesting to be updated on her dad's latest condition.
--- NOTE | 2020-01-09 19:10 | NUR ---
received patient on facial mask at 2l , morphine at 16mg , midline and picc intact deep breathing
--- NOTE | 2020-01-09 20:30 | NUR ---
heart rate was on the 50's , blood pressure is 30 /21
--- NOTE | 2020-01-09 21:35 | NUR ---
jerson , ground crew supervisor called the family from [place] and left a message
--- NOTE | 2020-01-09 21:45 | NUR ---
family was called in [place] to notify time of , with the hospital phone from the elevator constructor supervisor . waiting for call back
--- NOTE | 2020-01-09 22:00 | NUR ---
mendez catheter and flexiseal were removed
--- NOTE | 2020-01-09 22:30 | NUR ---
PATIENT WAS ESCORTED TO THE [facility] [place] WITH CAGE MANAGER AND AND SECURITY , NO BELONGINGS
--- NOTE | 2020-01-09 23:00 | NUR ---
DR RUELAS CALLED BACK AND NOTIFIED OF PATIENT'S EXPIRATION
--- NOTE | 2020-01-10 00:15 | NUR ---
SPOKE TO THE SON AND UPDATES GIVEN AND THE EXPIRATION TIME
== END 2020-01-09 21:25 | disposition expired | DRG 207 ==
LOC: ER 15:02 → TELE 19:28 → CCU 12-21 23:48
PROVIDERS: ADMIT Internal Medicine Nephrology; ATTEND Internal Medicine Nephrology
PROC: 5A1955Z Respiratory Ventilation, Greater than 96 Consecutive Hours (ICD-10-PCS; principal; 2019-12-22)
PROC: 0BH17EZ Insertion of Endotracheal Airway into Trachea, Via Natural or Artificial Opening (ICD-10-PCS; principal; 2019-12-22)
PROC: 05H533Z Insertion of Infusion Device into Right Subclavian Vein, Percutaneous Approach (ICD-10-PCS; 2019-12-22)
PROC: B548ZZA Ultrasonography of Superior Vena Cava, Guidance (ICD-10-PCS; 2019-12-27)
PROC: 02HV33Z Insertion of Infusion Device into Superior Vena Cava, Percutaneous Approach (ICD-10-PCS; 2019-12-27)
DX: U07.1 COVID-19 (principal); J12.89 Other viral pneumonia; J96.01 Acute respiratory failure with hypoxia; J96.02 Acute respiratory failure with hypercapnia; N17.9 Acute kidney failure, unspecified; D68.9 Coagulation defect, unspecified; N39.0 Urinary tract infection, site not specified; E87.2 Acidosis; E87.0 Hyperosmolality and hypernatremia; Z51.5 Encounter for palliative care; E11.65 Type 2 diabetes mellitus with hyperglycemia; E87.5 Hyperkalemia; F03.90 Unspecified dementia, unspecified severity, without behavioral disturbance, psychotic disturbance, mood disturbance, and anxiety; Z79.4 Long term (current) use of insulin; N18.9 Chronic kidney disease, unspecified; E11.22 Type 2 diabetes mellitus with diabetic chronic kidney disease; I12.9 Hypertensive chronic kidney disease with stage 1 through stage 4 chronic kidney disease, or unspecified chronic kidney disease; I49.3 Ventricular premature depolarization; B95.2 Enterococcus as the cause of diseases classified elsewhere; R74.0 Nonspecific elevation of levels of transaminase and lactic acid dehydrogenase [LDH]; F20.9 Schizophrenia, unspecified; E78.1 Pure hyperglyceridemia; Z88.8 Allergy status to other drugs, medicaments and biological substances; Z79.899 Other long term (current) drug therapy
CPT/HCPCS: 36415; 36600; 70030-TC; 71045; 83605; 83615; 83735; 84100; 84478; 85025; 85730; 86140; 87040; 87070; 87077; 87086; 87400; 93005; 94002; 94003; 94640; 94660; A4663; A9150; G0378; J0456; J0692; J0696; J1200; J1650; J1815; J2060; J2185; J2250; J2270; J2274; J2543; J2920; J2930; J3262; J3370; J3490; J3535; J7030; J7050; J7060; J7070; U0003-CS